=== PATIENT | male | born 1985 | race Caucasian/White ===

== ENCOUNTER 2020-12-18 17:00 | Emergency (ER) | payer MEDICAID, SELFPAY ==
[2020-12-18 17:14] VITALS: BP 146/97; PULSE 102; RESP 16; TEMP 37.1; O2SAT 98; BMI 38.7
[2020-12-18 17:20] VITALS: BP 146/97; PULSE 102; RESP 16; TEMP 37.1; O2SAT 98; BMI 38.5
--- NOTE | 2020-12-18 17:44 | HMH.EDUTC ---
[facility] [place] Impression: Abscess Disposition: Home, Self-Care Condition on Discharge: Good Instructions: Boil, DI for Skin Abscess Additional Instructions: keep area clean and dry if worsen return or be seen in ed do not take any antibiotics in cabinet antibiotics as ordered do not squeeze area follow up with pcp Prescriptions: Sulfamethoxazole/Trimethoprim [Bactrim DS tablet] 1 each PO BID 10 Days #20 tab Prescription Printed Referrals: New Mendez [Primary Care Provider] - Time of Disposition: 17:49 Medical Decision Making - Basil Inquiry Pt receiving controlled substance: No Vital Signs: 12/18/20 17:14 12/18/20 17:20 Temperature 98.7 F 98.7 F Temperature Source Oral Oral Pulse Rate [Left] 102 H 102 H Respiratory Rate 16 16 Blood Pressure [Right Arm] 146/97 H 146/97 H Blood Pressure Mean [Right Arm] 113 113 Blood Pressure Source [Right Arm] Automatic Cuff Automatic Cuff Blood Pressure Position [Right Arm] Supine Sitting 02 Sat by Pulse Oximetry 98 98 Oxygen Delivery Method Room Air Room Air Orders (Tests/Meds): ORDERS Category Date Time Status Wound Culture and Gram Stain Stat Micro 12/18/20 17:43 [place] [facility] [place] - General Chief complaint: Urgent Treatment Center Stated complaint: INSECT BITE R LEG Time Seen by Provider: 12/18/20 17:44 Mode of Arrival: Ambulatory Source of Information: Patient Limitations: No Limitations Description of Symptoms (Recalled from Triage Doc. by RN): patient states that he was bit by a spider 2 days ago, and attempted to treat at home with leftover ABX. Patient drained bite by self, and now getting chills at night. inflammation worsening HEENT Symptoms (Recalled from RN notes): No Resp Symptoms (Recalled from RN notes): No Skin Symptoms (Recalled from RN notes): Yes MS Symptoms (Recalled from RN notes): No Functional Status (Recalled from RN notes): WNL - History of Present Illness Provider Complaint: 35 yr old male patient states that he was bit by a spider 2 days ago, and attempted to treat at home with leftover ABX. Patient drained bite by self, and now getting chills at night. inflammation worsening - Related Data Previous Rx's Medication Instructions Recorded Sulfamethoxazole/Trimethoprim 1 each PO BID 10 Days #20 tab 12/18/20 [Bactrim DS tablet] Allergies Allergy/AdvReac Type Severity Reaction Status Date / Time No Known Allergies Allergy Verified 12/18/20 17:31 - Worker's Comp Is this a Worker's Comp case?: No [facility] History - Hepatitis A Screen Drug use history?: No High risk sexual behaviors?: No History of sexually transmitted infection?: No Currently employed?: No Childcare worker?: No Do you have indoor plumbing?: Yes Do you have electricity?: Yes Attestation statement:: This patient has been screened for Hepatitis A risk factors. I have reviewed the patient's past medical history: Yes - Social History Alcohol Intake: never Occupational Status: other ROS Obtained: Yes Systems reviewed as appropriate & no additional complaints - Constitutional Constitutional: Reports system reviewed and no additional complaints, except as docu, Denies fever(s) - Eyes Eyes: Reports system reviewed and no additional complaints, except as docu, Denies change in vision - ENT Ears, Nose, Mouth, and Throat: Reports system reviewed and no additional complaints, except as docu, Denies sore throat - Cardiovascular Cardiovascular: Reports system reviewed and no additional complaints, except as docu, Denies chest pain - Respiratory Respiratory: Reports system reviewed and no additional complaints, except as docu, Denies change in phlegm color - Gastrointestinal Gastrointestingal: Reports: system reviewed and no additional complaints, except as docu. Denies: nausea, vomiting - Genitourinary Male Genitourinary: Reports system reviewed and no additional complaints, except as docu - Musculoskeletal M
[2020-12-18 17:58] VITALS: BP 146/97; PULSE 102; RESP 16; TEMP 37.1; O2SAT 98
--- NOTE | 2020-12-21 12:51 | PC.NURSE ---
Lab result from culture positive for MRSA. Pt has already been given and will cover MRSA per Derik NEWELL
== END 2020-12-18 18:00 | disposition home or self-care (01) ==
PROVIDERS: Emergency Provider Nurse Practitioner Family; PCP Family Medicine
DX: L02.415 Cutaneous abscess of right lower limb (principal)
CPT/HCPCS: 87070; 87077; 87186; 87205; 99202; G0463

== ENCOUNTER 2023-10-03 13:55 | Emergency (ER) | payer MEDICAID, SELFPAY ==
[2023-10-03 14:25] VITALS: BP 138/88; PULSE 99; RESP 20; TEMP 37.6; O2SAT 97; BMI 39.2
--- NOTE | 2023-10-03 14:40 | EXP.UTC ---
Discharge Plan Disposition Patient Disposition: Home, Self-Care Condition: Good Prescriptions Prescriptions: New azithromycin [Zithromax] 250 mg tablet 250 mg PO UD DOSE PK Qty: 6 0RF Rx Instructions: Take two (2) tablets today, then one (1) tablet days #2 thru #5 benzonatate [benzonatate] 100 mg capsule 100 mg PO TIDP PRN (Reason: Cough) Qty: 30 0RF ondansetron 4 mg Tablet,Disintegrating 4 mg PO Q8H PRN (Reason: Nausea) Qty: 8 0RF No Action sulfamethoxazole-trimethoprim 1 EACH tablet 1 each PO BID 10 Days Qty: 20 0RF Referrals Follow up/Referrals: New Mendez [Primary Care Provider] - See instructions Activity Restrictions/Add. Instructions Additional Instructions/Restrictions: Drink plenty of fluids. Take tylenol or ibuprofen for pain or fever. Take the medications as directed. Follow up with your regular doctor. GO TO THE ER FOR ANY WORSENING SYMPTOMS Clinical Impressions Clinical Impression: Acute viral syndrome, Bronchitis Instructions Patient Instructions: DI for Acute Bronchitis, DI for Viral Syndrome Discharge ED Provider: Derik Martinez [facility] [place] General Stated complaint: vomiting, fever, dizziness, cant eat Time Seen by Provider: 10/03/23 14:30 History of Present Illness Provider Complaint: She states that for the past 2 days she has had vomiting, fever, chills, malaise, and sore throat. Related Data Previous Rx's Medication Instructions Recorded sulfamethoxazole 800 1 each PO BID 10 days #20 tabs 12/18/20 mg-trimethoprim 160 mg tablet azithromycin 250 mg tablet 250 mg PO UD DOSE PK #6 tabs 10/03/23 (Zithromax) benzonatate 100 mg capsule 100 mg PO TIDP PRN Cough #30 caps 10/03/23 ondansetron 4 mg disintegrating 4 mg PO Q8H PRN Nausea #8 tabs 10/03/23 tablet Allergies Allergy/AdvReac Type Severity Reaction Status Date / Time No Known Allergies Allergy Verified 12/18/20 17:31 [facility] Disclaimer: The information contained in this section may have been updated after the patient was seen, as this information can be updated by other users. Social History Smoking Status: Never smoker alcohol intake: never current occupational status: other Travel in the last 8 weeks: None ROS Obtained: Yes All systems reviewed & no additional complaints except as documented Constitutional Constitutional: Reports chills and Reports fever(s) Eyes Eyes: Denies eye discharge ENT Ears, Nose, Mouth, and Throat: Reports as per HPI Cardiovascular Cardiovascular: Denies chest pain Respiratory Respiratory: Denies chest congestion and Reports cough Gastrointestinal Gastrointestingal: Reports nausea; Denies abdominal pain, constipation, cramping, diarrhea or vomiting Musculoskeletal Musculoskeletal: Denies arthralgias Integumentary/Breasts Skin/Breast: Denies rash Neurologic Neurologic: Denies paresthesias Physical Exam General General appearance: alert and in no apparent distress Eye Eye exam: Present normal appearance, PERRL and EOMI ENT ENT exam: Present mucous membranes moist and normal external ear exam Expanded ENT Exam External ear exam: Present normal external inspection TM/Canal exam: Bilateral TM: erythema and bulging Nose exam: Absent sinus tenderness Nasal speculum exam: Bilateral: normal Mouth exam: Present normal external inspection; Absent drooling Teeth exam: Present normal inspection Throat exam: Present tonsillar erythema and tonsillomegaly Neck Neck exam: Present normal inspection, full ROM and trachea midline; Absent tenderness, lymphadenopathy or thyromegaly Chest Chest inspection: Present normal inspection and symmetric chest wall rise; Absent tenderness or rash Respiratory Respiratory exam: Present normal lung sounds bilaterally; Absent respiratory distress, wheezes, stridor or accessory muscle use Cardiovascular Cardiovascular exam: Present regular rate, normal rhythm and normal heart sounds Abdominal Exam Abdominal exam: Present soft; Absent distention, tenderness, guarding, rebound or rigidity Extremities Exam Extremities exam: Present normal inspection, full ROM and normal capillary refill; Absent tenderness or calf tenderness Back Exam Back exam: Present normal inspection and full ROM; Absent tenderness Neurological Exam Neurological exam: Present alert and oriented X3 Psychiatric Psychiatric exam: Present normal affect and normal mood Skin Skin exam: Present warm, dry, intact and normal color Lymphatic Lymphatic Findings: no adenopathy Medical Decision Making Medical Records Medical records reviewed: No I reviewed the patient's medical records. Basil Inquiry Pt receiving controlled substance: No Lab Data Lab results reviewed: Yes I reviewed the patient's lab results.
[2023-10-03 14:59] LABS: UTC Influenza A Antigen Negative (Negative); UTC Influenza B Antigen Negative (Negative)
[2023-10-03 15:07] VITALS: BP 138/88; PULSE 99; RESP 20; TEMP 37.6; O2SAT 97
[2023-10-03 15:21] LABS: Coronavirus 19, PCR Not Detected (NotDetected); Influenza B, PCR Not Detected (NotDetected)
[2023-10-03 16:16] LABS: Influenza A, PCR Detected (NotDetected)
== END 2023-10-03 15:18 | disposition home or self-care (01) ==
PROVIDERS: Emergency Provider Nurse Practitioner Family; PCP Family Medicine
DX: J10.1 Influenza due to other identified influenza virus with other respiratory manifestations (principal); R50.9 Fever, unspecified; R11.2 Nausea with vomiting, unspecified; R07.0 Pain in throat
CPT/HCPCS: 87636; 87804; 99212; 99214; G0463

== ENCOUNTER 2023-11-19 16:58 | Emergency (ER) | payer MEDICAID, SELFPAY ==
[2023-11-19] VITALS (12 sets, daily range): BP systolic 127–153; BP diastolic 90–112; PULSE 84–134; RESP 18–20; TEMP 37.1; O2SAT 97–100; BMI 39.2
--- NOTE | 2023-11-19 16:57 | ECG_ITS ---
APPROVED REPORT Exam: Resting ECG HR:94 bpm ECG Measurements Heart Rate 94 AXES VA 143 P 56 QRSd 77 QRS 63 QT 335 T 27 QTc [address] DEVIATION AND MODERATE T-WAVE ABNORMALITY, CONSIDER ANTEROLATERAL ISCHEMIA [-0.1+ mV T-WAVE IN V3-V6] ABNORMAL ECG Electronically signed by : ALANA SILVESTRE, 11/19/2023 23:09:14
--- NOTE | 2023-11-19 17:34 | XR_ITS ---
PROCEDURE INFORMATION: Exam: XR Chest Exam date and time: 11/19/2023 5:36 PM Age: 38 years old Clinical indication: Pain; Chest pressure; Additional info: Chest pain TECHNIQUE: Imaging protocol: Radiologic exam of the chest. Views: 2 views. COMPARISON: No relevant prior studies available. FINDINGS: Lungs: Clear. Pleural spaces: Normal. No pleural effusion. No pneumothorax. Heart/Mediastinum: Prominence of the right hilum could be due to by dilated pulmonary vasculature or adenopathy. Bones/joints: Unremarkable. IMPRESSION: 1. No acute pulmonary findings. 2. Prominence of the right hilum could be due to by dilated pulmonary vasculature or adenopathy. Recommend follow-up chest CT with IV contrast.
--- NOTE | 2023-11-19 17:36 | PC.NURSE ---
Dr. aVldez at bedside
--- NOTE | 2023-11-19 17:43 | ED_ITS ---
<Statement entered by John Valdez MD - 11/19/23 19:08> I was consulted by the ARTHUR, and we discussed the complexity of the problems being addressed. I approved the treatment and management plan for this patient's care in the emergency department, thus performing a substantive portion of the medical decision making. John Valdez MD Workup largely nonactionable, x-ray shows prominence of the right hilum which may be due to dilated pulmonary vasculature adenopathy. These findings were relayed to the patient at bedside and he will follow-up on an outpatient basis for this given that D-dimer has effectively ruled out pulmonary embolism today. Discharge Plan Disposition Patient Disposition: Home, Self-Care Condition: Good Prescriptions Prescriptions: New doxycycline hyclate 100 mg capsule 100 mg PO BID 10 Days Qty: 20 0RF prednisone 50 mg tablet 50 mg PO DAILY 5 Days Qty: 5 0RF No Action sulfamethoxazole-trimethoprim 1 EACH tablet 1 each PO BID 10 Days Qty: 20 0RF azithromycin [Zithromax] 250 mg tablet 250 mg PO UD DOSE PK Qty: 6 0RF Rx Instructions: Take two (2) tablets today, then one (1) tablet days #2 thru #5 benzonatate [benzonatate] 100 mg capsule 100 mg PO TIDP PRN (Reason: Cough) Qty: 30 0RF ondansetron 4 mg Tablet,Disintegrating 4 mg PO Q8H PRN (Reason: Nausea) Qty: 8 0RF Activity Restrictions/Add. Instructions Additional Instructions/Restrictions: Please follow-up closely with your PCP for reevaluation of your chest x-ray fullness that could be requiring further workup. Take medications as directed. Return to the ER as needed for any worsening signs of headache shortness of breath fever chills as needed. Please follow-up with your family doctor as discussed for possible CAT scan of your chest. Clinical Impressions Clinical Impression: Infection of lower respiratory tract, Asthma exacerbation Discharge ED Provider: John Valdez General Adult HPI <TAYLA Brooks - Last Filed: 11/19/23 19:04> General Chief complaint: Chest Pain Stated complaint: chest pain Time Seen by Provider: 11/19/23 17:21 Mode of Arrival: Wheelchair Source of Information: Patient Limitations: No Limitations Description of Symptoms (Recalled from ER Triage Doc. by RN): Patient states he started having some chest pain an hour ago. Patient also reports being dizzy and a headache. History of Present Illness HPI narrative: Patient reports he was driving his car began experiencing tunnel vision then began having chest pain and a headache. Patient reports feeling sick for the last 2 weeks with respiratory tract infection symptoms of cough fever malaise. Patient has no known cardiac history but does report that he has a history of anxiety that he self medicates with smoked marijuana. Patient also reports he has a 2-year history of intermittent upper abdominal pain that comes and goes very rapidly usually under 110. Patient currently denies shortness of breath chills hemoptysis hematochezia melena nausea vomit diarrhea. Related Data Previous Rx's Medication Instructions Recorded sulfamethoxazole 800 1 each PO BID 10 days #20 tabs 12/18/20 mg-trimethoprim 160 mg tablet azithromycin 250 mg tablet 250 mg PO UD DOSE PK #6 tabs 10/03/23 (Zithromax) benzonatate 100 mg capsule 100 mg PO TIDP PRN Cough #30 caps 10/03/23 ondansetron 4 mg disintegrating 4 mg PO Q8H PRN Nausea #8 tabs 10/03/23 tablet doxycycline hyclate 100 mg capsule 100 mg PO BID 10 days #20 caps 11/19/23 prednisone 50 mg tablet 50 mg PO DAILY 5 days #5 tabs 11/19/23 Allergies Allergy/AdvReac Type Severity Reaction Status Date / Time No Known Allergies Allergy Verified 12/18/20 17:31 [facility] <TAYLA Brooks - Last Filed: 11/19/23 19:04> [facility] Disclaimer: The information contained in this section may have been updated after the patient was seen, as this information can be updated by other users. Social History (Updated 10/05/23 @ 11:10 by Derik Martinez APRN) Smoking Status: Current every day smoker alcohol intake: never current occupational status: other Travel in the last 8 weeks: None <TAYLA Brooks - Last Filed: 11/19/23 19:04> ROS Obtained: Yes Systems reviewed as appropriate & no additional complaints except as documented Physical Exam <TAYLA Brooks - Last Filed: 11/19/23 19:04> General General appearance: alert, in no apparent distress and anxious Head Head exam: atraumatic and normal inspection Eye Eye exam: Present normal appearance and EOMI ENT ENT exam: Present normal exam, normal oropharynx and mucous membranes moist Neck Neck exam: Present normal inspection and full ROM Chest Chest inspection: Present normal inspection and symmetric chest wall rise Respiratory Respiratory exam: Present normal lung sounds bilaterally and wheezes; Absent respiratory distress, stridor or accessory muscle use Cardiovascular Cardiovascular exam: Present normal rhythm, tachycardia, normal heart sounds, +S1 and +S2 Abdominal Exam Abdominal exam: Present soft (Obese) and normal bowel sounds; Absent tenderness Extremities Exam Extremities exam: Present normal inspection and full ROM Back Exam Back exam: Present normal inspection and full ROM Neurological Exam Neurological exam: Present alert and oriented X3 Psychiatric Psychiatric exam: Present anxious and other (The patient has awake alert and interactive) Skin Skin exam: Present warm, dry and normal color Lymphatic Lymphatic Findings: no adenopathy Medical Decision Making <TAYLA Brooks - Last Filed: 11/19/23 19:04> Medical Records Medical records reviewed: Yes I reviewed the patient's medical records. Basil Inquiry Pt receiving controlled substance: No Vital Signs: 11/19/23 17:00 11/19/23 18:04 11/19/23 18:05 Temperature 98.8 F Temperature Source Oral Pulse Rate 102 H 100 H Pulse Rate [Left Radial] 103 H Respiratory Rate 20 Blood Pressure 148/95 H 149/107 H Blood Pressure [Left Arm] 144/94 H Blood Pressure Mean Blood Pressure Mean [Left Arm] 110 Blood Pressure Source [Left Arm] Automatic Cuff Blood Pressure Position [Left Arm] Sitting 02 Sat by Pulse Oximetry 99 99 98 Oxygen Delivery Method Room Air Room Air Room Air 11/19/23 18:10 11/19/23 18:15 11/19/23 18:20 Temperature Temperature Source Pulse Rate 91 H 98 H 108 H Pulse Rate [Left Radial] Respiratory Rate Blood Pressure 127/90 143/93 H 153/112 H Blood Pressure [Left Arm] Blood Pressure Mean Blood Pressure Mean [Left Arm] Blood Pressure Source [Left Arm] Blood Pressure Position [Left Arm] 02 Sat by Pulse Oximetry 98 98 98 Oxygen Delivery Method Room Air Room Air Room Air 11/19/23 18:25 11/19/23 18:30 11/19/23 18:35 Temperature Temperature Source Pulse Rate 123 H 134 H 107 H Pulse Rate [Left Radial] Respiratory Rate Blood Pressure 128/96 H 148/106 H 144/99 H Blood Pressure [Left Arm] Blood Pressure Mean 110 Blood Pressure Mean [Left Arm] Blood Pressure Source [Left Arm] Blood Pressure Position [Left Arm] 02 Sat by Pulse Oximetry 100 98 97 Oxygen Delivery Method Room Air Room Air Room Air 11/19/23 18:40 11/19/23 18:45 Temperature Temperature Source Pulse Rate 102 H 96 H Pulse Rate [Left Radial] Respiratory Rate Blood Pressure 144/97 H 149/100 H Blood Pressure [Left Arm] Blood Pressure Mean 109 116 Blood Pressure Mean [Left Arm] Blood Pressure Source [Left Arm] Blood Pressure Position [Left Arm] 02 Sat by Pulse Oximetry 98 100 Oxygen Delivery Method Room Air Room Air Lab Data Lab results reviewed: Yes I reviewed the patient's lab results. Lab Results 11/19/23 17:00: WBC 5.9, RBC 5.47, Hgb 15.7, Hct 48.0, MCV 87.7, MCH 28.7, MCHC 32.7, RDW 13.6, Plt Count 238, MPV 7.5, Neut % (Auto) 32.3 L, Lymph % (Auto) 42.1, [place] % (Auto) 11.8 H, Eos % (Auto) 13.8 H, Baso % (Auto) 4.5 H, Neut # (Auto) 1.9, Lymph # (Auto) 2.5, Lagrange # (Auto) 0.7, Eos # (Auto) 0.8 H, Baso # (Auto) 0.3 H, D-Dimer 0.38, Sodium 141, Potassium 3.7, Chloride 102, Carbon Dioxide 32 H, Anion Gap 10.7, BUN 11, Creatinine 1.00, Estimated Creat Clear 159, Estimated GFR 85, Est GFR ( Amer) 102, Glucose 81, Calcium 9.8, Total Bilirubin 0.6, AST 92 H, ALT 94 H, Alkaline Phosphatase 74, Troponin I < 0.01, Total Protein 8.0, Albumin 4.5, Globulin 3.5 H, Albumin/Globulin Ratio 1.3 11/19/23 18:06: Lactate 1.0 11/19/23 17:00 11/19/23 17:00 Orders (Tests/Meds): ED MEDICATIONS Discontinued Medications Generic Name Dose Route Start Last Admin Trade Name Freq PRN Reason Stop Dose Admin Acetaminophen 1,000 mg 11/19/23 17:57 11/19/23 18:16 Acetaminophen 1,000mg/100ml Vial IV 11/19/23 17:58 1,000 mg ONCE ONE Administration Albuterol/Ipratropium 3 ml 11/19/23 17:57 11/19/23 18:15 Ipratropium/Albuterol 3 Ml Neb IH 11/19/23 17:58 3 ml ONCE ONE Administration Dexamethasone Sodium Phosphate 10 mg 11/19/23 17:57 11/19/23 18:16 Dexamethasone 4mg/Ml 1ml Vial IM 11/19/23 17:58 10 mg ONCE ONE Administration Diphenhydramine HCl 50 mg 11/19/23 18:03 11/19/23 18:16 Diphenhydramine 50mg/Ml Vial IV 11/19/23 18:04 50 mg ONCE ONE Administration Ketorolac Tromethamine 15 mg 11/19/23 17:57 11/19/23 18:16 Ketorolac 30mg/Ml Vial IV 11/19/23 17:58 15 mg ONCE ONE Administration Prochlorperazine Edisylate 10 mg 11/19/23 18:03 11/19/23 18:16 Prochlorperazine 10mg/2ml Vial IV 11/19/23 18:04 10 mg ONCE ONE Administration ORDERS Category Date Time Status CXR 2 view (NOT portable) [XR chest 2V] Stat Exams 11/19/23 17:34 Completed Complete Blood Count Auto Diff Stat Lab 11/19/23 17:00 Completed Comprehensive Metabolic Panel Stat Lab 11/19/23 17:00 Completed D-Dimer Stat Lab 11/19/23 17:00 Completed Lactic Acid Stat Lab 11/19/23 18:06 Completed Rapid PCR Covid and Flu A/B Stat Lab 11/19/23 18:06 Received Troponin I Q3H Lab 11/19/23 20:45 Ordered Troponin I Q3H Lab 11/19/23 23:45 Ordered Troponin I Stat Lab 11/19/23 17:00 Completed HEART Score History (anamnesis): Slightly suspicious ECG: Normal Age: <45 years Risk factors: 1-2 risk factors Troponin: </= normal limit HEART Score: 1 Medical Decision Narrative: In summary patient is a 38-year-old male who presents to the emergency department for evaluation of chest pain and shortness of breath. Patient is normotensive slightly tachycardic of a heart rate of 103 satting at 99% on room air respiratory rate of 20 and afebrile upon arrival. Physical exam is remarkable for end expiratory wheezes in all 4 rogers but breath sounds are heard to bases. Patient has a grossly obese abdomen that has no tenderness to palpation currently. Bowel sounds are normal active. He has no evidence of a surgical abdomen. EKG on the bedside monitor shows a rate of 100 with normal sinus rhythm. Patient does report having severe anxiety and self medicates with marijuana frequently. Patient denies any desire to take a hot bath and has no nausea vomiting diarrhea associated with the abdominal pain that he briefly feels. Differential diagnosis includes PE versus ACS versus an acute abdomen versus COPD versus asthma versus lower respiratory tract infection etc. Initial workup will be conducted with hematologic labs respiratory swabs plain film chest x-ray twelve-lead EKG.. Initial interventions include Toradol Tylenol breathing treatment Decadron. initial workup reviewed by me shows that his hematologic labs are nonactionable. Plain film chest x-ray shows no acute processes via my informal review.. Upon repeat evaluation patient reports complete resolution of his subjective pain in both his head and his chest. Patient heart rate has remained 100. Given this patient is appropriate for discharge with close follow-up with his PCP. <John Valdez MD - Last Filed: 11/19/23 19:05> Vital Signs: 11/19/23 17:00 11/19/23 18:04 11/19/23 18:05 Temperature 98.8 F Temperature Source Oral Pulse Rate 102 H 100 H Pulse Rate [Left Radial] 103 H Respiratory Rate 20 Blood Pressure 148/95 H 149/107 H Blood Pressure [Left Arm] 144/94 H Blood Pressure Mean Blood Pressure Mean [Left Arm] 110 Blood Pressure Source [Left Arm] Automatic Cuff Blood Pressure Position [Left Arm] Sitting 02 Sat by Pulse Oximetry 99 99 98 Oxygen Delivery Method Room Air Room Air Room Air 11/19/23 18:10 11/19/23 18:15 11/19/23 18:20 Temperature Temperature Source Pulse Rate 91 H 98 H 108 H Pulse Rate [Left Radial] Respiratory Rate Blood Pressure 127/90 143/93 H 153/112 H Blood Pressure [Left Arm] Blood Pressure Mean Blood Pressure Mean [Left Arm] Blood Pressure Source [Left Arm] Blood Pressure Position [Left Arm] 02 Sat by Pulse Oximetry 98 98 98 Oxygen Delivery Method Room Air Room Air Room Air 11/19/23 18:25 11/19/23 18:30 11/19/23 18:35 Temperature Temperature Source Pulse Rate 123 H 134 H 107 H Pulse Rate [Left Radial] Respiratory Rate Blood Pressure 128/96 H 148/106 H 144/99 H Blood Pressure [Left Arm] Blood Pressure Mean 110 Blood Pressure Mean [Left Arm] Blood Pressure Source [Left Arm] Blood Pressure Position [Left Arm] 02 Sat by Pulse Oximetry 100 98 97 Oxygen Delivery Method Room Air Room Air Room Air 11/19/23 18:40 11/19/23 18:45 Temperature Temperature Source Pulse Rate 102 H 96 H Pulse Rate [Left Radial] Respiratory Rate Blood Pressure 144/97 H 149/100 H Blood Pressure [Left Arm] Blood Pressure Mean 109 116 Blood Pressure Mean [Left Arm] Blood Pressure Source [Left Arm] Blood Pressure Position [Left Arm] 02 Sat by Pulse Oximetry 98 100 Oxygen Delivery Method Room Air Room Air Lab Data Lab Results 11/19/23 17:00: WBC 5.9, RBC 5.47, Hgb 15.7, Hct 48.0, MCV 87.7, MCH 28.7, MCHC 32.7, RDW 13.6, Plt Count 238, MPV 7.5, Neut % (Auto) 32.3 L, Lymph % (Auto) 42.1, Lagrange % (Auto) 11.8 H, Eos % (Auto) 13.8 H, Baso % (Auto) 4.5 H, Neut # (Auto) 1.9, Lymph # (Auto) 2.5, [place] # (Auto) 0.7, Eos # (Auto) 0.8 H, Baso # (Auto) 0.3 H, D-Dimer 0.38, Sodium 141, Potassium 3.7, Chloride 102, Carbon Dioxide 32 H, Anion Gap 10.7, BUN 11, Creatinine 1.00, Estimated Creat Clear 159, Estimated GFR 85, Est GFR ( Amer) 102, Glucose 81, Calcium 9.8, Total Bilirubin 0.6, AST 92 H, ALT 94 H, Alkaline Phosphatase 74, Troponin I < 0.01, Total Protein 8.0, Albumin 4.5, Globulin 3.5 H, Albumin/Globulin Ratio 1.3 11/19/23 18:06: Lactate 1.0 Orders (Tests/Meds): ED MEDICATIONS Discontinued Medications Generic Name Dose Route Start Last Admin Trade Name Britany PRN Reason Stop Dose Admin Acetaminophen 1,000 mg 11/19/23 17:57 11/19/23 18:16 Acetaminophen 1,000mg/100ml Vial IV 11/19/23 17:58 1,000 mg ONCE ONE Administration Albuterol/Ipratropium 3 ml 11/19/23 17:57 11/19/23 18:15 Ipratropium/Albuterol 3 Ml Neb IH 11/19/23 17:58 3 ml ONCE ONE Administration Dexamethasone Sodium Phosphate 10 mg 11/19/23 17:57 11/19/23 18:16 Dexamethasone 4mg/Ml 1ml Vial IM 11/19/23 17:58 10 mg ONCE ONE Administration Diphenhydramine HCl 50 mg 11/19/23 18:03 11/19/23 18:16 Diphenhydramine 50mg/Ml Vial IV 11/19/23 18:04 50 mg ONCE ONE Administration Ketorolac Tromethamine 15 mg 11/19/23 17:57 11/19/23 18:16 Ketorolac 30mg/Ml Vial IV 11/19/23 17:58 15 mg ONCE ONE Administration Prochlorperazine Edisylate 10 mg 11/19/23 18:03 11/19/23 18:16 Prochlorperazine 10mg/2ml Vial IV 11/19/23 18:04 10 mg ONCE ONE Administration ORDERS Category Date Time Status CXR 2 view (NOT portable) [XR chest 2V] Stat Exams 11/19/23 17:34 Completed Complete Blood Count Auto Diff Stat Lab 11/19/23 17:00 Completed Comprehensive Metabolic Panel Stat Lab 11/19/23 17:00 Completed D-Dimer Stat Lab 11/19/23 17:00 Completed Lactic Acid Stat Lab 11/19/23 18:06 Completed Rapid PCR Covid and Flu A/B Stat Lab 11/19/23 18:06 Received Troponin I Q3H Lab 11/19/23 20:45 Ordered Troponin I Q3H Lab 11/19/23 23:45 Ordered Troponin I Stat Lab 11/19/23 17:00 Completed ECG Data Tracing #1: Independently interpreted by me, rate is 94, rhythm is regular, axis is normal, no ST elevation in anatomical contiguous leads, QTc 387. HEART Score HEART Score: 1 Critical Care <TAYLA Brooks - Last Filed: 11/19/23 19:04> Critical Care Time Critical Care Time: No
[2023-11-19 17:50] LABS: Basophils # 0.3 K/mm3 (0-0.2); Basophils % 4.5 % (0.1-2.0); Chloride 102 mmol/L (98-107); Eosinophils # 0.8 K/mm3 (0.0-0.4); Eosinophils % 13.8 % (0.1-12.0); Hemoglobin 15.7 g/dL (14.1-18.0); Lymphocytes # 2.5 K/mm3 (0.7-4.5); Lymphocytes % 42.1 % (10-50); Mean Corpuscular HGB Conc 32.7 g/dL (31.8-35.4); Mean Corpuscular Hemoglobin 28.7 pg (27.0-31.2); Mean Corpuscular Volume 87.7 fl (80-94); Mean Platelet Volume 7.5 fl (7.4-10.4); Monocytes # 0.7 K/mm3 (0.1-1.0); Monocytes % 11.8 % (1.7-9.3); Neutrophils # 1.9 K/mm3 (1.8-7.8); Neutrophils % 32.3 % (37.0-80.0); Platelet Count 238 K/mm3 (142-424); Potassium 3.7 mmoL/L (3.5-5.1); Red Blood Count 5.47 M/mm3 (4.60-6.20); Red Cell Distribution Width 13.6 % (11.5-17.5); Sodium 141 mmol/L (136-145); White Blood Count 5.9 K/mm3 (4.8-10.8)
[2023-11-19 17:52] LABS: Alanine Aminotransferase 94 U/L (12-78); Aspartate Amino Transferase 92 U/L (17-59); Blood Urea Nitrogen 11 mg/dl (9-20); Creatinine Clearance Estimated 159 mL/min (50-200); Estimated Glomerular Filt Rate 85 ml/min (>60); GFR (African American) 102 ML/MIN (>60)
[2023-11-19 17:53] LABS: Albumin Level 4.5 g/dl (3.5-5.0); Albumin/Globulin Ratio 1.3 (1.1-1.8); Alkaline Phosphatase 74 U/L (38-126); Anion Gap 10.7 mEq/L (5-15); Bilirubin,Total 0.6 mg/dl (0.2-1.3); Calcium 9.8 mg/dl (8.4-10.2); Carbon Dioxide 32 mmol/L (22.0-30.0); Globulin 3.5 g/dL (1.3-3.2); Glucose 81 mg/dl (74-100)
[2023-11-19 18:12] LABS: Troponin I < 0.01 ng/ml (0.00-0.034)
[2023-11-19] MEDS: IPRATROPIUM/ALBUTEROL 3 ML NEB IH (18:15)
[2023-11-19] MEDS: PROCHLORPERAZINE 10MG/2ML VIAL 10 MG IV (18:16)
[2023-11-19] MEDS: KETOROLAC 30MG/ML VIAL 15 MG IV (18:16)
[2023-11-19] MEDS: diphenhydrAMINE 50MG/ML VIAL 50 MG IV (18:16)
[2023-11-19] MEDS: DEXAMETHASONE 4MG/ML 1ML VIAL 10 MG IM (18:16)
[2023-11-19] MEDS: ACETAMINOPHEN 1,000MG/100ML VIAL 1000 MG IV (18:16)
[2023-11-19 18:17] LABS: Coronavirus 19, PCR Not Detected (NotDetected); Influenza A, PCR Not Detected (NotDetected); Influenza B, PCR Not Detected (NotDetected)
[2023-11-19 18:25] LABS: D-Dimer 0.38 ug/mL (0.0-0.5)
== END 2023-11-19 19:15 | disposition home or self-care (01) ==
PROVIDERS: Physician Assistant; Emergency Provider Emergency Medicine; PCP Family Medicine
DX: R07.9 Chest pain, unspecified (principal); J45.901 Unspecified asthma with (acute) exacerbation; R51.9 Headache, unspecified; R05.9 Cough, unspecified; R50.9 Fever, unspecified; J06.9 Acute upper respiratory infection, unspecified; F17.210 Nicotine dependence, cigarettes, uncomplicated
CPT/HCPCS: 71046; 80053; 83605; 84484; 85025; 85378; 87636; 93005; 96372; 96374; 96375; 99285; J0131

== ENCOUNTER 2023-12-06 08:54 | Emergency (ER) | payer MEDICAID, SELFPAY ==
[2023-12-06 08:56] VITALS: BP 143/88; PULSE 108; RESP 13; TEMP 37.1; O2SAT 96; BMI 40.5
[2023-12-06 09:00] VITALS: BP 143/88; PULSE 105; O2SAT 97
--- NOTE | 2023-12-06 09:10 | CT_ITS ---
PROCEDURE INFORMATION: Exam: CT Abdomen And Pelvis With Contrast Exam date and time: 12/06/2023 9:35 AM Age: 38 years old Clinical indication: Abdominal pain; Generalized; Prior surgery; Surgery date: 6+ months; Surgery type: Cholecystectomy; Additional info: Diffuse abd pain, diarrhea TECHNIQUE: Imaging protocol: Computed tomography of the abdomen and pelvis with contrast. Radiation optimization: All CT scans at this facility use at least one of these dose optimization techniques: automated exposure control; mA and/or kV adjustment per patient size (includes targeted exams where dose is matched to clinical indication); or iterative reconstruction. Contrast material: ISOVUE; Contrast volume: 75 ml; Contrast route: IV; COMPARISON: CR XR CHEST 2V 11/19/2023 5:36 PM FINDINGS: Lungs: There is a calcified 4 mm granuloma in the right lower lobe peripherally on image 13.The visualized portions of the lung bases are otherwise normal. Diaphragm: A small hiatal hernia is present. Liver: There are no focal liver lesions present, no mass is identified. Gallbladder and bile ducts: There has been a cholecystectomy. Pancreas: The pancreas is normal. Spleen: The spleen is normal. Adrenal glands: The adrenal glands are normal. Kidneys and ureters: The kidneys are normal. There is no evidence of hydronephrosis. No calculi are identified. Stomach and bowel: There is mild increase in right colonic fluid with no evidence of colitis. Appendix: A normal appendix is identified. Intraperitoneal space: Unremarkable. No free air. No significant fluid collection. Vasculature: Unremarkable. No abdominal aortic aneurysm. Lymph nodes: Unremarkable. No enlarged lymph nodes. Urinary bladder: Unremarkable as visualized. Reproductive: Unremarkable as visualized. Bones/joints: Unremarkable. No acute fracture. Soft tissues: There is a fat filled right inguinal hernia. Other findings: There are right hilar calcifications presumably reflecting chronic granulomatous disease. IMPRESSION: 1. There are right hilar calcifications presumably reflecting chronic granulomatous disease. 2. There is mild increase in right colonic fluid with no evidence of colitis.
--- NOTE | 2023-12-06 09:12 | ED_ITS ---
Discharge Plan Disposition Patient Disposition: Home, Self-Care Prescriptions Prescriptions: New loperamide 2 mg capsule 2 mg PO Q6H PRN (Reason: loose stool) 5 Days Qty: 20 0RF Rx Instructions: Please take 4 mg initially, followed by 2 mg after each loose stool, maximum 16 mg/day ondansetron 4 mg tablet,disintegrating 4 mg PO Q6H PRN (Reason: nausea and vomiting) 5 Days Qty: 20 0RF No Action sulfamethoxazole-trimethoprim 1 EACH tablet 1 each PO BID 10 Days Qty: 20 0RF azithromycin [Zithromax] 250 mg tablet 250 mg PO UD DOSE PK Qty: 6 0RF Rx Instructions: Take two (2) tablets today, then one (1) tablet days #2 thru #5 benzonatate [benzonatate] 100 mg capsule 100 mg PO TIDP PRN (Reason: Cough) Qty: 30 0RF ondansetron 4 mg Tablet,Disintegrating 4 mg PO Q8H PRN (Reason: Nausea) Qty: 8 0RF doxycycline hyclate 100 mg capsule 100 mg PO BID 10 Days Qty: 20 0RF prednisone 50 mg tablet 50 mg PO DAILY 5 Days Qty: 5 0RF Referrals Follow up/Referrals: Bret Dueñas MD [Physician] - See instructions Provider,MD Ashlyn [Referring] - See instructions Activity Restrictions/Add. Instructions Additional Instructions/Restrictions: No emergent medical condition was identified today your symptoms are most likely secondary to viral gastroenteritis. Given the fact that you did disclose that you had some chronic diarrhea I recommend you follow-up with our GI provider a referral has been made. Return with any significant worsening symptoms or other concerns. Clinical Impressions Clinical Impression: Nausea vomiting and diarrhea Instructions Patient Instructions: DI for Acute Abdominal Pain Discharge ED Provider: Owen Jolley General Adult HPI General Chief complaint: Abdominal Pain Stated complaint: diarrhea, vomiting, weakness Time Seen by Provider: 12/06/23 09:05 Mode of Arrival: Ambulatory Source of Information: Patient and Parent(s) Limitations: No Limitations Description of Symptoms (Recalled from ER Triage Doc. by RN): pt presents to ED with c/o diarrhea, nausea, vomitting, generalized abdominal cramping. symptoms ongoing for 3 days History of Present Illness HPI narrative: Patient is a 38-year-old male presents today with nausea vomiting and diarrhea. Also has generalized abdominal cramping that he states is severe. Denies any blood in the stool but was recently on antibiotics was treated last week for presumed asthma versus COPD exacerbation advised to stop smoking which he has done. Recently completed his antibiotics. Denies any fevers denies any history of inflammatory bowel disease. Abdominal pain is described as diffuse and crampy in nature. No traveling outside the country. Also has had some nausea vomiting associated with this his son recently had strep but this was diagnosed with an objective test and was not a viral etiology. No other sick contacts that he is aware of. Related Data Previous Rx's Medication Instructions Recorded sulfamethoxazole 800 1 each PO BID 10 days #20 tabs 12/18/20 mg-trimethoprim 160 mg tablet azithromycin 250 mg tablet 250 mg PO UD DOSE PK #6 tabs 10/03/23 (Zithromax) benzonatate 100 mg capsule 100 mg PO TIDP PRN Cough #30 caps 10/03/23 ondansetron 4 mg disintegrating 4 mg PO Q8H PRN Nausea #8 tabs 10/03/23 tablet doxycycline hyclate 100 mg capsule 100 mg PO BID 10 days #20 caps 11/19/23 prednisone 50 mg tablet 50 mg PO DAILY 5 days #5 tabs 11/19/23 loperamide 2 mg capsule 2 mg PO Q6H PRN loose stool 5 days 12/06/23 #20 caps ondansetron 4 mg disintegrating 4 mg PO Q6H PRN nausea and 12/06/23 tablet vomiting 5 days #20 tabs Allergies Allergy/AdvReac Type Severity Reaction Status Date / Time No Known Allergies Allergy Verified 12/18/20 17:31 [facility] Disclaimer: The information contained in this section may have been updated after the patient was seen, as this information can be updated by other users. Social History (Updated 10/05/23 @ 11:10 by Derik Martinez APRN) Smoking Status: Former smoker alcohol intake: never current occupational status: other Travel in the last 8 weeks: None ROS Obtained: Yes All systems reviewed & no additional complaints except as documented Physical Exam General General appearance: alert and in no apparent distress Respiratory Respiratory exam: Present normal lung sounds bilaterally Cardiovascular Cardiovascular exam: Present regular rate Abdominal Exam Abdominal exam: Present soft and tenderness (Diffuse tenderness no rebound or guarding) Neurological Exam Neurological exam: Present alert and oriented X3 Medical Decision Making Basil Inquiry Pt receiving controlled substance: No Vital Signs: 12/06/23 08:56 12/06/23 09:00 12/06/23 09:22 Temperature 98.7 F Temperature Source Oral Pulse Rate 105 H 105 H Pulse Rate [Left Radial] 108 H Respiratory Rate 13 Blood Pressure 143/88 H 113/88 Blood Pressure [Right Arm] 143/88 H Blood Pressure Mean [Right Arm] 106 02 Sat by Pulse Oximetry 96 97 95 Oxygen Delivery Method Room Air 12/06/23 10:00 Temperature Temperature Source Pulse Rate 98 H Pulse Rate [Left Radial] Respiratory Rate Blood Pressure 108/70 L Blood Pressure [Right Arm] Blood Pressure Mean [Right Arm] 02 Sat by Pulse Oximetry 95 Oxygen Delivery Method Room Air Lab Data Lab results reviewed: Yes I reviewed the patient's lab results. Lab Results 12/06/23 09:05: WBC 8.3, RBC 5.58, Hgb 15.8, Hct 48.4, MCV 86.7, MCH 28.3, MCHC 32.7, RDW 13.9, Plt Count 235, MPV 7.3 L, Neut % (Auto) 71.8, Lymph % (Auto) 11.9, [place] % (Auto) 10.1 H, Eos % (Auto) 3.3, Baso % (Auto) 2.9 H, Neut # (Auto) 5.9, Lymph # (Auto) 1.0, [place] # (Auto) 0.8, Eos # (Auto) 0.3, Baso # (Auto) 0.2, Sodium 138, Potassium 3.7, Chloride 104, Carbon Dioxide 28, Anion Gap 9.7, BUN 10, Creatinine 1.10, Estimated Creat Clear 150, Estimated GFR 76, Est GFR ( Amer) 92, Glucose 119 H, Calcium 9.6, Phosphorus 3.1, Magnesium 1.9, Total Bilirubin 0.9, AST 37, ALT 49, Alkaline Phosphatase 75, Total Protein 7.8, Albumin 4.5, Globulin 3.3 H, Albumin/Globulin Ratio 1.4, Lipase 36 12/06/23 09:05 12/06/23 09:05 Orders (Tests/Meds): ED MEDICATIONS Generic Name Dose Route Start Last Admin Trade Name Freq PRN Reason Stop Dose Admin Sodium Chloride 10 ml 12/06/23 09:41 12/06/23 09:42 Sodium Chloride 0.9% 10ml Syr (Rad Only) IV 01/05/24 09:40 10 ml NEEDED PRN Administration Maintain IV Site Discontinued Medications Generic Name Dose Route Start Last Admin Trade Name Britany PRN Reason Stop Dose Admin Lactated Ringer's 1,000 mls @ 999 mls/hr 12/06/23 09:15 12/06/23 09:23 Lactated Ringer's 1000 Ml Bag IV 12/06/23 10:15 999 mls/hr .Q1H1M WHITNEY Administration Iopamidol 75 ml 12/06/23 09:41 12/06/23 09:42 Iopamidol-370 (76%);100ml Bottle IV 12/06/23 09:42 75 ml ONCE ONE Administration Ketorolac Tromethamine 15 mg 12/06/23 09:10 12/06/23 09:24 Ketorolac 30mg/Ml Vial IV 12/06/23 09:11 15 mg ONCE ONE Administration Ondansetron HCl 4 mg 12/06/23 09:10 12/06/23 09:24 Ondansetron 4mg/2ml Vial IV 12/06/23 09:11 4 mg ONCE ONE Administration ORDERS Category Date Time Status CT abdomen pelvis w con Stat Cat Scan 12/06/23 09:10 Completed CBC w/Auto Diff [Complete Blood Count Auto Diff] Stat Lab 12/06/23 09:05 Completed CMP [Comprehensive Metabolic Panel] Stat Lab 12/06/23 09:05 Completed Diarrhea 23 Panel, PCR Stat Lab 12/06/23 09:10 Ordered Lipase Stat Lab 12/06/23 09:05 Completed Magnesium Stat Lab 12/06/23 09:05 Completed Phosphorous Stat Lab 12/06/23 09:05 Completed Medical Decision Narrative: Patient is a well-appearing 38-year-old male presents today with diffuse abdominal pain and tenderness with nausea vomiting diarrhea. He recently completed antibiotics on the differential would include invasive bacterial pathogens and colitis such as C. difficile colitis versus inflammatory colitis versus ischemic which is less likely. Additionally could be gastroenteritis and viral in nature. IV fluids pain medicine nausea medicine labs including comprehensive PCR panel will be performed as well as a CT scan for further evaluation and management. Reassessment 1052 patient feeling much better tolerating p.o. serial abdominal exams are benign labs unremarkable CT scan was performed which I personally interpreted shows no acute intra-abdominal process radiology read is consistent with this specifically no evidence of any colitis. On further questioning and discussion with the patient he states that he had chronic diarrhea I given him a referral to gastroenterology. Zofran and loperamide have been prescribed he was discharged in stable condition with return precautions emphasized Critical Care Critical Care Time Critical Care Time: No
[2023-12-06 09:21] LABS: Basophils # 0.2 K/mm3 (0-0.2); Basophils % 2.9 % (0.1-2.0); Chloride 104 mmol/L (98-107); Eosinophils # 0.3 K/mm3 (0.0-0.4); Eosinophils % 3.3 % (0.1-12.0); Hematocrit 48.4 % (42.0-52.0); Hemoglobin 15.8 g/dL (14.1-18.0); Lymphocytes % 11.9 % (10-50); Mean Corpuscular HGB Conc 32.7 g/dL (31.8-35.4); Mean Corpuscular Hemoglobin 28.3 pg (27.0-31.2); Mean Corpuscular Volume 86.7 fl (80-94); Mean Platelet Volume 7.3 fl (7.4-10.4); Monocytes # 0.8 K/mm3 (0.1-1.0); Monocytes % 10.1 % (1.7-9.3); Neutrophils # 5.9 K/mm3 (1.8-7.8); Neutrophils % 71.8 % (37.0-80.0); Platelet Count 235 K/mm3 (142-424); Potassium 3.7 mmoL/L (3.5-5.1); Red Blood Count 5.58 M/mm3 (4.60-6.20); Red Cell Distribution Width 13.9 % (11.5-17.5); Sodium 138 mmol/L (136-145); White Blood Count 8.3 K/mm3 (4.8-10.8)
[2023-12-06 09:22] VITALS: BP 113/88; PULSE 105; O2SAT 95
[2023-12-06 09:23] LABS: Alanine Aminotransferase 49 U/L (12-78); Aspartate Amino Transferase 37 U/L (17-59); Blood Urea Nitrogen 10 mg/dl (9-20); Creatinine Clearance Estimated 150 mL/min (50-200); Estimated Glomerular Filt Rate 76 ml/min (>60); GFR (African American) 92 ML/MIN (>60)
[2023-12-06] MEDS: LACTATED RINGERS 1000ML 1,000 ML 999 ML IV (09:23)
[2023-12-06 09:24] LABS: Albumin Level 4.5 g/dl (3.5-5.0); Albumin/Globulin Ratio 1.4 (1.1-1.8); Alkaline Phosphatase 75 U/L (38-126); Anion Gap 9.7 mEq/L (5-15); Bilirubin,Total 0.9 mg/dl (0.2-1.3); Calcium 9.6 mg/dl (8.4-10.2); Carbon Dioxide 28 mmol/L (22.0-30.0); Globulin 3.3 g/dL (1.3-3.2); Glucose 119 mg/dl (74-100); Lipase 36 U/L (23-300); Magnesium 1.9 mg/dl (1.6-2.3); Phosphorous 3.1 mg/dl (2.5-4.5); Total Protein,Serum 7.8 g/dl (6.3-8.2)
[2023-12-06] MEDS: KETOROLAC 30MG/ML VIAL 15 MG IV (09:24)
[2023-12-06] MEDS: ONDANSETRON 4MG/2ML VIAL 4 MG IV (09:24)
--- NOTE | 2023-12-06 09:30 | PC.NURSE ---
pt to CT via wheelchair
[2023-12-06] MEDS: IOPAMIDOL-370 (76%);100ML BOTTLE 75 ML IV (09:42)
[2023-12-06] MEDS: SODIUM CHLORIDE 0.9% 10ML SYR (RAD ONLY) 10 ML IV (09:42)
[2023-12-06 10:00] VITALS: BP 108/70; PULSE 98; O2SAT 95
--- NOTE | 2023-12-06 10:47 | PC.NURSE ---
Rounded on patient, patient given water at this time.
[2023-12-06 10:55] VITALS: BP 125/83; PULSE 81; RESP 16; TEMP 36.7; O2SAT 100
== END 2023-12-06 10:56 | disposition home or self-care (01) ==
PROVIDERS: Emergency Provider Student in an Organized Health Care Education/Training Program; PCP Family Medicine
DX: R10.84 Generalized abdominal pain (principal); R11.2 Nausea with vomiting, unspecified; R19.7 Diarrhea, unspecified
CPT/HCPCS: 74177; 80053; 83690; 83735; 84100; 85025; 96361; 96374; 96375; 99284; J2405; Q9967

== ENCOUNTER 2023-12-19 10:10 | Emergency (ER) | payer MEDICAID, SELFPAY ==
[2023-12-19 10:11] VITALS: BP 135/89; PULSE 86; RESP 16; TEMP 36.4; O2SAT 99; BMI 40.3
--- NOTE | 2023-12-19 10:11 | ECG_ITS ---
APPROVED REPORT Exam: Resting ECG HR:80 bpm ECG Measurements Heart Rate 80 AXES CO 149 P 49 QRSd 86 QRS 52 QT 366 T 42 QTc 402 Conclusion SINUS RHYTHM WITH OCCASIONAL ECTOPIC PREMATURE COMPLEXES NONSPECIFIC T-WAVE ABNORMALITY BORDERLINE ECG UNCONFIRMED REPORT Electronically signed by : Derik Jolley, 12/19/2023 15:04:16
--- NOTE | 2023-12-19 10:19 | XR_ITS ---
FINAL REPORT CLINICAL HISTORY: chest pain-left COMPARISON: None FINDINGS: A single portable view of the chest was obtained. The heart size and pulmonary vascularity are within normal limits. The mediastinum is within normal limits. No acute pulmonary abnormality is identified. The bony thorax is intact. IMPRESSION: No active cardiopulmonary disease. Reviewed, Interpreted and Dictated by Ahmet Kendall III, MD Transcribed by Julianne Rooney Authenticated and [facility]
[2023-12-19 10:24] LABS: MANUAL DIFFERENTIAL MANUAL DIFFERENTIAL (MANUAL DIFF)
--- NOTE | 2023-12-19 10:26 | PC.NURSE ---
in room talking with patient at this time.
[2023-12-19 10:29] LABS: Basophils # 0.1 K/mm3 (0-0.2); Basophils % 1.4 % (0.1-2.0); Chloride 105 mmol/L (98-107); Eosinophils # 0.4 K/mm3 (0.0-0.4); Eosinophils % 5.2 % (0.1-12.0); Hematocrit 43.7 % (42.0-52.0); Hemoglobin 14.1 g/dL (14.1-18.0); Lymphocytes # 2.9 K/mm3 (0.7-4.5); Lymphocytes % 41.9 % (10-50); Mean Corpuscular HGB Conc 32.2 g/dL (31.8-35.4); Mean Corpuscular Hemoglobin 28.3 pg (27.0-31.2); Mean Corpuscular Volume 87.8 fl (80-94); Mean Platelet Volume 7.2 fl (7.4-10.4); Monocytes # 0.5 K/mm3 (0.1-1.0); Monocytes % 7.2 % (1.7-9.3); Neutrophils % 44.4 % (37.0-80.0); Platelet Count 272 K/mm3 (142-424); Potassium 4.3 mmoL/L (3.5-5.1); Red Blood Count 4.97 M/mm3 (4.60-6.20); Red Cell Distribution Width 14.2 % (11.5-17.5); Sodium 139 mmol/L (136-145); White Blood Count 6.8 K/mm3 (4.8-10.8)
[2023-12-19 10:30] VITALS: BP 137/97; PULSE 83; RESP 14; O2SAT 100
[2023-12-19 10:31] LABS: Alanine Aminotransferase 35 U/L (12-78); Alkaline Phosphatase 65 U/L (38-126); Aspartate Amino Transferase 32 U/L (17-59); Bilirubin,Total 0.5 mg/dl (0.2-1.3); Blood Urea Nitrogen 13 mg/dl (9-20); Creatinine Clearance Estimated 205 mL/min (50-200); Estimated Glomerular Filt Rate 109 ml/min (>60); GFR (African American) 132 ML/MIN (>60)
[2023-12-19 10:32] LABS: Albumin Level 4.1 g/dl (3.5-5.0); Albumin/Globulin Ratio 1.2 (1.1-1.8); Anion Gap 10.3 mEq/L (5-15); Calcium 9.3 mg/dl (8.4-10.2); Carbon Dioxide 28 mmol/L (22.0-30.0); Globulin 3.3 g/dL (1.3-3.2); Glucose 104 mg/dl (74-100); Total Protein,Serum 7.4 g/dl (6.3-8.2)
[2023-12-19 10:46] LABS: Troponin I < 0.01 ng/ml (0.00-0.034)
--- NOTE | 2023-12-19 10:51 | [facility].EDCP ---
Discharge Plan Disposition Patient Disposition: Home, Self-Care Prescriptions Prescriptions: No Action sulfamethoxazole-trimethoprim 1 EACH tablet 1 each PO BID 10 Days Qty: 20 0RF azithromycin [Zithromax] 250 mg tablet 250 mg PO UD DOSE PK Qty: 6 0RF Rx Instructions: Take two (2) tablets today, then one (1) tablet days #2 thru #5 benzonatate [benzonatate] 100 mg capsule 100 mg PO TIDP PRN (Reason: Cough) Qty: 30 0RF ondansetron 4 mg Tablet,Disintegrating 4 mg PO Q8H PRN (Reason: Nausea) Qty: 8 0RF doxycycline hyclate 100 mg capsule 100 mg PO BID 10 Days Qty: 20 0RF prednisone 50 mg tablet 50 mg PO DAILY 5 Days Qty: 5 0RF loperamide 2 mg capsule 2 mg PO Q6H PRN (Reason: loose stool) 5 Days Qty: 20 0RF Rx Instructions: Please take 4 mg initially, followed by 2 mg after each loose stool, maximum 16 mg/day ondansetron 4 mg tablet,disintegrating 4 mg PO Q6H PRN (Reason: nausea and vomiting) 5 Days Qty: 20 0RF Referrals Follow up/Referrals: Artur Tam MD [Staff Physician] - See instructions Provider,MD Ashlyn [Primary Care Provider] - See instructions Viktor Avila MD [Staff Physician] - See instructions Activity Restrictions/Add. Instructions Additional Instructions/Restrictions: Your symptoms or not consistent with acute cardiopulmonary emergency. That could be secondary to reflux given your improvement with a GI cocktail. I have given you a referral to Dr. Miranda if you are to follow-up and get an outpatient endoscopy as discussed. Secondarily your symptoms could be from chronic lung inflammation from smoking marijuana as discussed. If you have any continued this we do recommend that you administer this via a different route particular orally. However as discussed this cannot be done in a safe fashion as these medications are not FDA controlled and [facility]. I did recommend that you also take [id number] Pepcid you may also try magnesium supplementation as needed for your anxiety. Please return emerged part with any significant worsening of your symptoms. Lastly your cardiology referral has been placed if you would like to follow-up with them as well. Clinical Impressions Clinical Impression: Atypical chest pain Discharge ED Provider: Owen Jolley HPI General Chief Complaint: Chest Pain Stated Complaint: chest pain Time Seen by Provider: 12/19/23 10:25 Mode of Arrival: Ambulatory Source of Information: Patient Limitations: No Limitations Description of Symptoms (Recalled from ER Triage Doc. by RN): Patient reports left sided chest pain since last night. States he has had on and off chest pain for awhile and was recently seen at [place] for this. States they recommended he follow up with a assistant speech language pathologist and he has been unable to do so. History of Present Illness HPI narrative: Patient is a 38-year-old male presents today with left anterior chest pain. This is nonexertional not associated with dyspnea is worse with touch and at times gets worse with laying down at night. Has a history of GERD but states this feels different than that in the past. Also states that he went to [facility] several months ago for similar symptoms was worked up and negative and was subsequently supposed to follow-up with cardiology get a coronary CTA but his insurance has denied this. States that he is having left anterior chest pain since yesterday evening about 7 PM. It has been constant. Only making it worse with touch. Does have a history of smoking and has been coughing regularly recently. Denies any definitive history of coronary artery disease lower extremity swelling prolonged immobilizations hemoptysis etc. Related Data Previous Rx's Medication Instructions Recorded sulfamethoxazole 800 1 each PO BID 10 days #20 tabs 12/18/20 mg-trimethoprim 160 mg tablet azithromycin 250 mg tablet 250 mg PO UD DOSE PK #6 tabs 10/03/23 (Zithromax) benzonatate 100 mg capsule 100 mg PO TIDP PRN Cough #30 caps 10/03/23 ondansetron 4 mg disintegrating 4 mg PO Q8H PRN Nausea #8 tabs 10/03/23 tablet doxycycline hyclate 100 mg capsule 100 mg PO BID 10 days #20 caps 11/19/23 prednisone 50 mg tablet 50 mg PO DAILY 5 days #5 tabs 11/19/23 loperamide 2 mg capsule 2 mg PO Q6H PRN loose stool 5 days 12/06/23 #20 caps ondansetron 4 mg disintegrating 4 mg PO Q6H PRN nausea and 12/06/23 tablet vomiting 5 days #20 tabs Allergies Allergy/AdvReac Type Severity Reaction Status Date / Time No Known Allergies Allergy Verified 12/18/20 17:31 [facility] Disclaimer: The information contained in this section may have been updated after the patient was seen, as this information can be updated by other users. Social History (Updated 10/05/23 @ 11:10 by Derik Martinez APRN) Smoking Status: Current every day smoker alcohol intake: never current occupational status: other Travel in the last 8 weeks: None ROS Obtained: Yes All systems reviewed & no additional complaints except as documented Physical Exam General General appearance: alert and in no apparent distress Chest Chest inspection: Present tenderness (Left anterior chest wall pain reproducing pain) Respiratory Respiratory exam: Present normal lung sounds bilaterally; Absent respiratory distress Cardiovascular Cardiovascular exam: Present regular rate and normal rhythm Abdominal Exam Abdominal exam: Present soft; Absent distention or tenderness Neurological Exam Neurological exam: Present alert and oriented X3 HEART Score HEART Score HEART Score assessment performed?: Yes History (anamnesis): Slightly suspicious ECG: Normal Age: <45 years Risk factors: 1-2 risk factors Troponin: </= normal limit HEART Score: 1 Critical Care Critical Care Time Critical Care Time: No Medical Decision Making Basil Inquiry Pt receiving controlled substance: No Vital Signs Vital Signs: 12/19/23 10:11 12/19/23 10:30 12/19/23 11:30 Temperature 97.6 F 98.7 F Temperature Source Oral Oral Pulse Rate 83 73 Pulse Rate [Radial] 86 Respiratory Rate 16 14 18 Blood Pressure 137/97 H 116/89 Blood Pressure [Right Arm] 135/89 Blood Pressure Mean [Right Arm] 104 Blood Pressure Source Automatic Cuff Blood Pressure Source [Right Arm] Automatic Cuff Blood Pressure Position Supine Blood Pressure Position [Right Arm] Sitting 02 Sat by Pulse Oximetry 99 100 Oxygen Delivery Method Room Air Room Air Lab Data Lab results reviewed: Yes I reviewed the patient's lab results. Labs: Lab Results 12/19/23 10:12: WBC 6.8, RBC 4.97, Hgb 14.1, Hct 43.7, MCV 87.8, MCH 28.3, MCHC 32.2, RDW 14.2, Plt Count 272, MPV 7.2 L, Neut % (Auto) 44.4, Lymph % (Auto) 41.9, [place] % (Auto) 7.2, Eos % (Auto) 5.2, Baso % (Auto) 1.4, Neut # (Auto) 3.0, Lymph # (Auto) 2.9, [place] # (Auto) 0.5, Eos # (Auto) 0.4, Baso # (Auto) 0.1, Sodium 139, Potassium 4.3, Chloride 105, Carbon Dioxide 28, Anion Gap 10.3, BUN 13, Creatinine 0.80, Estimated Creat Clear 205, Estimated GFR 109, Est GFR ( Amer) 132, Glucose 104 H, Calcium 9.3, Total Bilirubin 0.5, AST 32, ALT 35, Alkaline Phosphatase 65, Troponin I < 0.01, Total Protein 7.4, Albumin 4.1, Globulin 3.3 H, Albumin/Globulin Ratio 1.2, Lipase 105 12/19/23 10:12 12/19/23 10:12 Response Orders (Tests/Meds): ED MEDICATIONS Generic Name Dose Route Start Last Admin Trade Name Freq PRN Reason Stop Dose Admin Sodium Chloride 10 ml 12/19/23 10:19 Sodium Chloride 0.9% 10ml Flush Syringe IV 01/18/24 10:18 NEEDED PRN Maintain IV Site Discontinued Medications Generic Name Dose Route Start Last Admin Trade Name Freq PRN Reason Stop Dose Admin Belladonna Alkaloids 60 ml 12/19/23 10:40 12/19/23 10:57 Belladonna Alkaloids 60 Ml Ml PO 12/19/23 10:41 60 ml ONCE ONE Administration Ketorolac Tromethamine 15 mg 12/19/23 10:40 12/19/23 10:56 Ketorolac 30mg/Ml Vial IV 12/19/23 10:41 15 mg ONCE ONE Administration ORDERS Category Date Time Status Chest XR -- portable [XR chest portable] Stat Exams 12/19/23 10:19 Taken Complete Blood Count Man Dif Stat Lab 12/19/23 10:12 Results Comprehensive Metabolic Panel Stat Lab 12/19/23 10:12 Completed Lipase Stat Lab 12/19/23 10:12 Completed Troponin I Q3H Lab 12/19/23 13:30 Ordered Troponin I Q3H Lab 12/19/23 16:30 Ordered Troponin I Stat Lab 12/19/23 10:12 Completed ECG Data Tracing #1: Attestation: I reviewed this ECG and interpreted as documented below: ECG Narrative: Ventricular rate of 80 normal axis no acute ischemic changes noted no significant duction abnormalities normal EKG MDM Narrative Medical Decision Narrative: AdditionVery well-appearing 38-year-old male presents today with over 12 hours of ongoing chest pain located left anterior lateral aspect of the chest wall. It is reproducible to touch suggesting this is most likely musculoskeletal in nature and possibly from recent coughing. He has no other high risk factors from a coronary artery standpoint we will get a single troponin given the duration to rule out any myocardial injury or acute coronary syndrome. EKG was nonischemic. Chest x-ray was performed which I personally interpreted shows no acute cardiopulmonary emergency. I had an extensive discussion with him regarding risk and benefits of downstream noninvasive cardiac imaging which he understood. No emergent indication for coronary CTA he will follow-up outpatient with his assistant speech language pathologist I will also give him a referral to our sleep. Will reassess after his therapeutic medications were administered. Esophageal pathology certainly still on the differential as well. Reassessment 1132 patient did feel significantly better after GI cocktail and Toradol. This suggest that his pathology is either musculoskeletal or GI in nature. Will have him follow-up with our surgeon for an outpatient endoscopy and he will start [id number] Pepcid. He states he had significant treatment and that his chest discomfort when he stopped smoking marijuana the past we discussed different modalities of this and whether or not that is safe and effective for his anxiety. Over all there is no evidence of cardiopulmonary emergency was discharged in stable condition.
--- NOTE | 2023-12-19 10:51 | PC.NURSE ---
Rounded on patient, no needs voiced at this time.
[2023-12-19] MEDS: KETOROLAC 30MG/ML VIAL 15 MG IV (10:56)
[2023-12-19] MEDS: BELLADONNA ALKALOIDS 60 ML ML PO (10:57)
[2023-12-19 11:02] LABS: Lipase 105 U/L (23-300)
[2023-12-19 11:30] VITALS: BP 116/89; PULSE 73; RESP 18; TEMP 37.1; O2SAT 99
[2023-12-19 11:54] LABS: Eosinophils % 3 % (0-3); Lymphocytes % 50 % (10-50); Monocytes % 4 % (2-9); Neutrophils % 43 % (42-76); Total Cells Counted 100
[2023-12-19 12:00] LABS: Platelet Estimate Normal; RBC Morphology Normal
== END 2023-12-19 11:34 | disposition home or self-care (01) ==
PROVIDERS: Emergency Provider Student in an Organized Health Care Education/Training Program
DX: R07.89 Other chest pain (principal); K21.9 Gastro-esophageal reflux disease without esophagitis; R05.9 Cough, unspecified; F17.210 Nicotine dependence, cigarettes, uncomplicated
CPT/HCPCS: 71045; 80053; 83690; 84484; 85007; 85014; 85018; 85048; 85049; 93005; 96374; 99284

== ENCOUNTER 2024-05-14 22:24 | Emergency (ER) | payer MEDICAID, SELFPAY ==
[2024-05-14 22:24] VITALS: BP 150/118; PULSE 110; RESP 20; TEMP 36.7; O2SAT 97; BMI 39.6
[2024-05-14 22:28] VITALS: PULSE 110
[2024-05-14 22:30] VITALS: BP 186/123; PULSE 101; O2SAT 100
--- NOTE | 2024-05-14 22:38 | XR_ITS ---
PROCEDURE INFORMATION: Exam: XR Chest Exam date and time: 05/14/2024 10:52 PM Age: 38 years old Clinical indication: Dyspnea TECHNIQUE: Imaging protocol: Radiologic exam of the chest. Views: 1 view. COMPARISON: CR XR CHEST PORTABLE 12/19/2023 10:34 AM FINDINGS: Lungs: No evidence of acute pulmonary disease or infiltrates Pleural spaces: No large effusion or pneumothorax. Heart/Mediastinum: No evidence of mediastinal widening or cardiac silhouette enlargement; the mediastinum and heart appear within normal limits for contour and size. Bones/joints: No evidence of acute osseous abnormalities within the visualized portions of the thoracic spine and ribs. Osseous structures appear appropriate for patient age. IMPRESSION: No dense parenchymal consolidation, pleural effusion, or pneumothorax.
[2024-05-14 22:47] LABS: Basophils # 0.1 K/mm3 (0-0.2); Basophils % 1.2 % (0.1-2.0); Eosinophils # 0.2 K/mm3 (0.0-0.4); Eosinophils % 1.9 % (0.1-12.0); Hemoglobin 15.8 g/dL (14.1-18.0); Lymphocytes # 3.1 K/mm3 (0.7-4.5); Lymphocytes % 28.9 % (10-50); Mean Corpuscular HGB Conc 34.3 g/dL (31.8-35.4); Mean Corpuscular Volume 84.6 fl (80-94); Monocytes % 8.9 % (1.7-9.3); Neutrophils # 6.4 K/mm3 (1.8-7.8); Platelet Count 313 K/mm3 (142-424); Red Blood Count 5.44 M/mm3 (4.60-6.20); Red Cell Distribution Width 14.1 % (11.5-17.5); White Blood Count 10.8 K/mm3 (4.8-10.8)
--- NOTE | 2024-05-14 22:50 | [facility].EDCP ---
Discharge Plan Disposition Patient Disposition: Still a Patient Prescriptions Prescriptions: No Action sulfamethoxazole-trimethoprim 1 EACH tablet 1 each PO BID 10 Days Qty: 20 0RF azithromycin [Zithromax] 250 mg tablet 250 mg PO UD DOSE PK Qty: 6 0RF Rx Instructions: Take two (2) tablets today, then one (1) tablet days #2 thru #5 benzonatate [benzonatate] 100 mg capsule 100 mg PO TIDP PRN (Reason: Cough) Qty: 30 0RF ondansetron 4 mg Tablet,Disintegrating 4 mg PO Q8H PRN (Reason: Nausea) Qty: 8 0RF doxycycline hyclate 100 mg capsule 100 mg PO BID 10 Days Qty: 20 0RF prednisone 50 mg tablet 50 mg PO DAILY 5 Days Qty: 5 0RF loperamide 2 mg capsule 2 mg PO Q6H PRN (Reason: loose stool) 5 Days Qty: 20 0RF Rx Instructions: Please take 4 mg initially, followed by 2 mg after each loose stool, maximum 16 mg/day ondansetron 4 mg tablet,disintegrating 4 mg PO Q6H PRN (Reason: nausea and vomiting) 5 Days Qty: 20 0RF Referrals Follow up/Referrals: [facility] Mendez [Primary Care Provider] - See instructions Clinical Impressions Clinical Impression: Atypical chest pain, Anxiety Print Language Print Language: Thai Discharge ED Provider: Owen Jolley [facility] General Chief Complaint: Chest Pain Stated Complaint: chest pain Time Seen by Provider: 05/14/24 22:24 Mode of Arrival: EMS Source of Information: Patient and Parent(s) Limitations: No Limitations Description of Symptoms (Recalled from ER Triage Doc. by RN): pt reports chest pain that is midsternal and radiates to the left side and down the left side. pt denies any changes with inhalation and exhalation. pt reports changes recently made in home anxiety and depressive medications History of Present Illness HPI narrative: Patient is a 38-year-old male with a history of PTSD bipolar 1 disorder who has been on numerous serotonergic drugs recently that he had multiple manic episodes last week and had multiple medication changes. He states that for the last 4 days he has been dizzy recently stopped one of his SSRIs and his dizziness went away but he began to have chest pain today. Began 2 hours prior to arrival located left anterior chest wall nonexertional no dyspnea not associated with radiation etc. He states he is very anxious right now. No history of coronary disease no fevers chills cough etc. Related Data Previous Rx's ?Medication ?Instructions ?Recorded sulfamethoxazole 800 1 each PO BID 10 days #20 tabs 12/18/20 mg-trimethoprim 160 mg tablet azithromycin 250 mg tablet 250 mg PO UD DOSE PK #6 tabs 10/03/23 (Zithromax) benzonatate 100 mg capsule 100 mg PO TIDP PRN Cough #30 caps 10/03/23 ondansetron 4 mg disintegrating 4 mg PO Q8H PRN Nausea #8 tabs 10/03/23 tablet doxycycline hyclate 100 mg capsule 100 mg PO BID 10 days #20 caps 11/19/23 prednisone 50 mg tablet 50 mg PO DAILY 5 days #5 tabs 11/19/23 loperamide 2 mg capsule 2 mg PO Q6H PRN loose stool 5 days 12/06/23 #20 caps ondansetron 4 mg disintegrating 4 mg PO Q6H PRN nausea and 12/06/23 tablet vomiting 5 days #20 tabs Allergies Allergy/AdvReac Type Severity Reaction Status Date / Time No Known Allergies Allergy Verified 12/18/20 17:31 [facility] Disclaimer: The information contained in this section may have been updated after the patient was seen, as this information can be updated by other users. Social History (Updated 10/05/23 @ 11:10 by Derik Martinez APRN) Smoking Status: Former smoker alcohol intake: never current occupational status: other Travel in the last 8 weeks: None ROS Obtained: Yes All systems reviewed & no additional complaints except as documented Physical Exam General General appearance: anxious Chest Chest inspection: Present normal inspection and symmetric chest wall rise Respiratory Respiratory exam: Present normal lung sounds bilaterally; Absent respiratory distress Cardiovascular Cardiovascular exam: Present regular rate and normal rhythm Abdominal Exam Abdominal exam: Present soft; Absent distention or tenderness Neurological Exam Neurological exam: Present alert, oriented X3, CN II-XII intact and normal gait; Absent motor sensory deficit HEART Score HEART Score HEART Score assessment performed?: Yes History (anamnesis): Slightly suspicious ECG: Non-specific disturbance Age: <45 years Risk factors: No known risk factors Troponin: </= normal limit HEART Score: 1 Critical Care Critical Care Time Critical Care Time: No Medical Decision Making Basil Inquiry Pt receiving controlled substance: No Vital Signs Vital Signs: 05/14/24 22:24 Temperature 98.0 F Temperature Source Oral Pulse Rate [Right] 110 H Respiratory Rate 20 Blood Pressure [Right Arm] 150/118 H Blood Pressure Mean [Right Arm] 128 02 Sat by Pulse Oximetry 97 Oxygen Delivery Method Room Air Response Orders (Tests/Meds): ED MEDICATIONS Generic Name Dose Route Start Last Admin Trade Name Freq PRN Reason Stop Dose Admin Lactated Ringer's 1,000 mls @ 999 mls/hr 05/14/24 22:45 Lactated Ringer's 1000 Ml Bag IV 05/14/24 23:45 .Q1H1M WHITNEY Sodium Chloride 10 ml 05/14/24 22:40 Sodium Chloride 0.9% 10ml Vial IV 06/13/24 22:39 NEEDED PRN to Dilute Lorazepam inj Discontinued Medications Generic Name Dose Route Start Last Admin Trade Name Freq PRN Reason Stop Dose Admin Lorazepam 0.5 mg 05/14/24 22:40 Lorazepam 2mg/Ml Vial IV 05/14/24 22:41 ONCE ONE ORDERS Category Date Time Status CXR --portable [XR chest portable] Stat Exams 05/14/24 22:38 Ordered CBC w/Auto Diff [Complete Blood Count Auto Diff] Stat Lab 05/14/24 22:38 Ordered CMP [Comprehensive Metabolic Panel] Stat Lab 05/14/24 22:38 Ordered D-Dimer Stat Lab 05/14/24 22:39 Ordered Trop I [Troponin I] Stat Lab 05/14/24 22:38 Ordered Troponin I Q3H Lab 05/15/24 01:45 Ordered Troponin I Q3H Lab 05/15/24 04:45 Ordered ECG Data Tracing #1: Attestation: I reviewed this ECG and interpreted as documented below: ECG Narrative: Ventricular rate of [address] no significant ST elevations or depressions there are nonspecific anterior T wave inversions no significant conduction abnormalities there is normal axis MDM Narrative Medical Decision Narrative: Very well-appearing 38-year-old male who is anxious presents today with 2 hours of atypical chest pain symptoms. Unlikely to be acute coronary syndrome but given the onset of symptoms we will get serial troponins has been placed in ED observation. He is tachycardic cannot use pulmonary embolism a lot criteria will get D-dimer and utilize years criteria regarding cutoff for CT PE. EKG is on remarkable. Will get serial troponins care will be transitioned to Dr. Janet Menezes at 11 PM for final disposition.
[2024-05-14 23:03] LABS: Alanine Aminotransferase 42 U/L (12-78); Albumin Level 4.7 g/dl (3.5-5.0); Albumin/Globulin Ratio 1.3 (1.1-1.8); Alkaline Phosphatase 77 U/L (38-126); Aspartate Amino Transferase 41 U/L (17-59); Bilirubin,Total 0.6 mg/dl (0.2-1.3); Blood Urea Nitrogen 14 mg/dl (9-20); Calcium 9.8 mg/dl (8.4-10.2); Carbon Dioxide 29 mmol/L (22.0-30.0); Chloride 102 mmol/L (98-107); Creatinine Clearance Estimated 179 mL/min (50-200); Estimated Glomerular Filt Rate 95 ml/min (>60); GFR (African American) 116 ML/MIN (>60); Globulin 3.6 g/dL (1.3-3.2); Glucose 105 mg/dl (74-100); Sodium 138 mmol/L (136-145); Total Protein,Serum 8.3 g/dl (6.3-8.2)
[2024-05-14] MEDS: LORazepam 2MG/ML VIAL 0.5 MG IV (23:06)
[2024-05-14] MEDS: ACETAMINOPHEN 500MG TAB 1000 MG PO (23:06)
[2024-05-14] MEDS: LACTATED RINGERS 1000ML 1,000 ML 999 ML IV (23:06)
[2024-05-14 23:07] LABS: D-Dimer < 0.25 ug/mL (0.0-0.5)
[2024-05-14 23:30] VITALS: BP 132/99; PULSE 109; O2SAT 96
[2024-05-14 23:32] LABS: Anion Gap 10.5 mEq/L (5-15); Potassium 3.5 mmoL/L (3.5-5.1); Troponin I < 0.01 ng/ml (0.00-0.034)
--- NOTE | 2024-05-14 23:46 | ECG_ITS ---
APPROVED REPORT Exam: Resting ECG HR:120 bpm ECG Measurements Heart Rate 120 AXES PA 135 P 53 QRSd 80 QRS 73 QT 339 T 58 QTc 410 Conclusion SINUS TACHYCARDIA MODERATE T-WAVE ABNORMALITY, CONSIDER ANTERIOR ISCHEMIA [-0.1+ mV T-WAVE IN V3/V4] ABNORMAL ECG Similar to previous ECG, no dynamic changes, no STEMI Electronically signed by : GERALD MURPHY, 05/15/2024 03:26:21
[2024-05-15] VITALS: BP 132/93; PULSE 105; RESP 21; O2SAT 99
[2024-05-15 00:30] VITALS: BP 128/83; PULSE 98; RESP 16; O2SAT 98
[2024-05-15 01:02] VITALS: BP 129/79; PULSE 105; RESP 18; O2SAT 97
[2024-05-15 01:30] VITALS: BP 125/80; PULSE 109; RESP 17; O2SAT 96
[2024-05-15 02:03] LABS: Troponin I < 0.01 ng/ml (0.00-0.034)
[2024-05-15 02:14] VITALS: BP 128/83; PULSE 99; RESP 18; TEMP 36.8; O2SAT 99
== END 2024-05-15 02:16 | disposition home or self-care (01) ==
PROVIDERS: Emergency Provider Student in an Organized Health Care Education/Training Program; PCP Family Medicine
DX: R07.9 Chest pain, unspecified (principal); F41.9 Anxiety disorder, unspecified
CPT/HCPCS: 71045; 80053; 84484; 85025; 85378; 93005; 96361; 96374; 99285; J2060; J7120

== ENCOUNTER 2025-08-03 18:26 | Emergency (ER) | payer MEDICAID, SELFPAY ==
--- OUTSIDE RECORDS SUMMARY | 2025-06-11 18:28 | XMS_ITS | Encounter Summary ---
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 [address] Matthew Saldaña, [address] [place] [phone] Bronchitis (Primary Dx) Discharge Disposition: Home or Self Care Social History Tobacco Use Types Packs/Day Years Used Date Smoking Tobacco: Every Day Cigarettes Last attempted to quit: 10/02/2014 Passive Smoke Exposure: Current Smokeless Tobacco: Never Comments:1 cig per month rar urbano Alcohol Use Standard Drinks/Week Comments No 0 (1 standard drink = 0.6 oz pur e alcohol) RARELY B1300 Health Literacy Answer Date Recor ded How often do you need to hav e someone help you when you read instructions, pamphlets, or other written material from your doctor or pharmacy? Never 05/10/2024 [facility] Utilities Answer Date Recorded In the past 12 months has th e electric, gas, oil, or water company threatened to shut off services in your home? No 05/10/2024 Social Connection and Isolation Panel Answer Date Recorded In a typical week, how many times do you talk on the phone with family, friends, or neighbors? More than three times a week 05/10/2024 How often do you get togethe r with friends or relatives? Twice a week 05/10/2024 How often do you attend chur ch or buddhist services? More than 4 times per year 05/10/2024 Do you belong to any clubs o r organizations such as spiritism groups, unions, fraternal or athletic groups, or school groups? No 05/10/2024 How often do you attend meet ings of the clubs or organizations you belong to? Never 05/10/2024 Are you , , di vorced, , never , or living with a partner? Never 05/10/2024 AUDIT-C Answer Date Recorded Q1: How often do you have a drink containing alcohol? Never 05/10/2024 Q2: How many drinks containi ng alcohol do you have on a typical day when you are drinking? Patient does not drink Q3: How often do you have si x or more drinks on one occasion? Never 05/10/2024 Overall Financial Resource Strain (CARDIA) Answe r Date Recorded How hard is it for you to pa y for the very basics like food, housing, medical care, and heating? Not hard at all 05/10/2024 PHQ-2 Answer Date Recorded PHQ-2 Total Score 2 06/16/2024 [facility] - Occupational Stress Questionnaire Answer Date Recorded Do you feel stress - tense, restless, nervous, or anxious, or unable to sleep at night because your mind is troubled all the time - these days? To some extent 05/10/2024 Exercise Vital Sign Answer Date Recorde d On average, how many days pe r week do you engage in moderate to strenuous exercise (like a brisk walk)? 4 days 05/10/2024 On average, how many minutes do you engage in exercise at this level? 30 min 05/10/2024 Hunger Vital Sign Answer Date Recorded Within the past 12 months, y ou worried that your food would run out before you got the money to buy more. Never true 05/10/20 24 Within the past 12 months, t he food you bought just didn't last and you didn't have money to get more. Never true 05/10/2024 PRAPARE - Transportation Answer Date Re corded In the past 12 months, has l ack of transportation kept you from medical appointments or from getting medications? No 04/13 In the past 12 months, has l ack of transportation kept you from meetings, work, or from getting things needed for daily living? No 05/10/2024 Housing Stability Vital Sign Answer Doyle e Recorded In the last 12 months, was t here a time when you were not able to pay the mortgage or rent on time? No 05/10/2024 In the past 12 months, how m any times have you moved where you were living? 0 05/10/2024 At any time in the past 12 m [place], were you homeless or living in a assisted (including now)? No 05/10/2024 Sexually Active Control Partners Comments Yes Female Sex and Gender Information Value Date Recorded Sex Assigned at Not on file Legal Sex Male 7:29 AM EDT Gender Identity Not on file Sexual Orientation Not on file documented as of this encounter Last Filed Vital Signs Vital Sign Reading Time Taken Comments Blood Pressure 125/73 06/11/2025 8:30 PM EDT Pulse 76 06/11/2025 8:50 PM EDT Temperature 36.9 C (98.4 F) 06/11/2025 7:32 PM EDT Respiratory Rate 21 06/11/2025 8:50 PM EDT Oxygen Saturation 95% 06/11/2025 8:50 PM EDT Inhaled Oxygen Concentration - - Weight 103.4 kg (228 lb) 06/11/2025 7:24 PM EDT Height 167.6 cm (5' 6 ) 06/11/2025 7:24 PM EDT Body Mass Index 36.8 06/11/2025 7:24 PM EDT documented in this encounter Functional Status * Is the person deaf or does he/she have serious difficulty hearing? Answer Date of Assessment Author No 05/10/2024 9:41 AM EDT Malena Hancock RMA * Is the person blind or does he/she have serious difficulty seeing even when wearing glasses? Answer Date of Assessment Author No 05/10/2024 9:41 AM EDT Malena Hancock RMA * Does this person have serious difficulty walking or climbing stairs? Answer Date of Assessment Author No 05/10/2024 9:41 AM EDT Malena Hancock RMA * Does this person have difficulty dressing or bathing? Answer Date of Assessment Author No 05/10/2024 9:41 AM EDT Malena Hancock RMA * Because of a physical, mental or emotional condition, does this person have difficulty doing errands alone such as visiting a doctor's office or shopping? Answer Date of Assessment Author No 05/10/2024 9:41 AM EDT Malena Hancock RMA documented as of this encounter Mental Status * Because of a physical, mental or emotional condition, does this person have serious difficulty concentrating, remembering or making decisions? Answer Entry Date Author No 05/10/2024 9:41 AM EDT Malena Hancock RMA documented in this encounter Discharge Instructions * Attachments The following attachments cannot be sent through Care Everywhere. * Bronchitis in adults ??? ED discharge instructions (Panamanian) documented in this encounter Medications at Time of Discharge albuterol-ipratro pium (DUO-NEB) 3 mg-0.5 mg(2.5 mg base)/3 mL Inhl Solution for NebulizationIndic ations:Acute bacterial bronchitis,Exacer bation of asthma, unspecified asthma severity, unspecified whether persistent Take 3 mL by nebulization every 6 hours as needed for Shortness of Breath. 60 mL 05/22/2025 ALPRAZolam (XANAX) 0.5 mg Oral TabletIndications :panic symptoms, tremors Take 1 Tablet by mouth 2 times daily as needed for Sleep or Anxiety. Indications: panic symptoms, tremors 7 Tablet 06/08/2025 cloNIDine (CATAPRES) 0.1 mg Oral TabletIndications :Generalized anxiety disorder Take 1 Tablet by mouth 2 times daily. 60 Tablet 2 08/30/2024 escitalopram oxalate (LEXAPRO) 10 mg Oral TabletIndications :Chronic post-traumatic stress disorder (PTSD),Major depressive disorder, recurrent severe without psychotic features (HCC) Take 1 Tablet by mouth daily. 100 Tablet 1 02/23/2025 ibuprofen (ADVIL;MOTRIN) 200 mg Oral Tablet Take 200 mg by mouth every 8 hours as needed for Pain or Fever. 5 lumateperone 21 mg Oral CapsuleIndication s:depression associated with bipolar disorder Take 21 mg by mouth daily. Indications: bipolar depression 30 Capsule 04/14/2025 5 methylPREDNISolon e (MEDROL DOSPACK) 4 mg Oral Tablets, Dose PackIndications:A cute bacterial bronchitis,Exacer bation of asthma, unspecified asthma severity, unspecified whether persistent See package instructions 21 Tablet 05/22/2025 5 predniSONE (DELTASONE) 10 mg Oral Tablet 6day taper- Day 1: 6 tabs in AM; Day 2: 5 tabs in AM; Day 3: 4 tabs in AM; Day 4: 3 tabs in AM; Day 5: 2tabs in AM; Day 6 -1 tab in AM 21 Tablet 06/11/2025 5 documented as of this encounter Ordered Prescriptions Prescription Sig Dispense Quantity Refills Last Filled Start Date End Date predniSONE (DELTASONE) 10 mg Oral Tablet 6day taper- Day 1: 6 tabs in AM; Day 2: 5 tabs in AM; Day 3: 4 tabs in AM; Day 4: 3 tabs in AM; Day 5: 2tabs in AM; Day 6 -1 tab in AM 21 Tablet 06/11/2025 06/17/2025 documented in this encounter Discharge Disposition Disposition Code Departure Means Destination Comment s Home or Self Senior Care documented in this encounter ED Notes * Brenda Xiao, AQUA AMMONIA OPERATOR - 06/11/2025 7:20 PM EDT CHIEF COMPLAINT Chief Complaint Patient presents with Bronchitis X week: dry cough/ tried alb/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 male who presents with complaints of cough with chest pain. The patienttells me he has had chest pain for a while but states this has worsened over the last week. The patient equates his symptoms to frequent smoking of marijuana. He states he has since converted to edibles. He has no cardiac history with no history of MT or coronary artery stent placement. He has nohistory of hypercholesteremia or diabetes. His only cardiac risk factor is smoking of marijuana andhypertension. He is prescribed clonidine. He has a known history of juvenile asthma, anxiety, and depression. REVIEW OF SYSTEMS See HPI for further details. Review of systems otherwise negative. PAST MEDICAL HISTORY Past Medical History[1] FAMILY HISTORY Family History[2] SOCIAL HISTORY Social History[3] SURGICAL HISTORY Surgical History[4] CURRENT MEDICATIONS Current Medications[5] ALLERGIES Allergies[6] PHYSICAL EXAM VITAL SIGNS: ED Triage Vitals Temp 06/11/251931 98.4 ??F (36.9 ??C) Pulse 06/11/251923 98 Resp 06/11/251923 19 BP 06/11/251929 124/70 SpO2 06/11/251923 98 % Height 06/11/251923 5' 6 (1.676 m) Weight 06/11/251923 228 lb (103.4 kg) Constitutional: Well developed, Well nourished, No acute distress, Non-toxic appearance. HENT: Normocephalic, Atraumatic, Bilateral external ears normal, Oropharynx moist, No oral exudates, Nose normal. Eyes: PERRLA, EOMI, Conjunctiva normal, No discharge. Neck: Normal range of motion, No tenderness, Supple, No stridor. Cardiovascular: Regular rate, no murmurs, gallops, clicks Thorax & Lungs: Faint sparse expiratory wheeze, no rales, no stridor, no accessory muscle use, no respiratory distress, 98% RA Abdomen: Bowel sounds normal, Soft, No tenderness, No masses, No pulsatile masses. Skin: Warm, Dry, No erythema, No rash. Back: No tenderness, No CVA tenderness. Extremities: Intact distal pulses, No tenderness, No cyanosis. Neurologic: Alert & oriented x 3, Normal motor function, Normal sensory function, No focal deficits noted. Heart score: 1 EKG EKG Interpretation Interpreted by Brenda Xiao APRN Rhythm: NSR Rate: 80 bpm Stephenson: normal Ectopy: none Conduction: normal ST Segments: no acute change T Waves: no acute change Q Waves: none Clinical Impression: NSR-no acute change compared to 04/09/2025 LAB/RADIOLOGY/PROCEDURES Results for orders placed or performed during the hospital encounter of 06/11/25 XR CHEST AP PORTABLE Narrative XR CHEST AP PORTABLE, 06/11/2025 7:43 PM CLINICAL HISTORY: Acute chest pain. Congestion. COMPARISON: 04/10/2025. PROCEDURE COMMENTS: AP portable technique. FINDINGS: Stable radiographic appearance of the heart and pulmonary vascular structures. No evidence of acute pulmonary edema. The lungs are clear. No visualized pneumothorax or pleural effusions. Impression No acute intrathoracic process. - Note: Radiology results need to be interpreted within a comprehensive clinical context. If you have questions about the radiology report, please contact the office of the ordering clinician. CBC WITH DIFF Result Value Ref Range WBC 5.7 3.7 - 10.3 x10(3)/mcL RBC 4.73 4.60 - 6.10 x10(6)/mcL Hgb 13.6 (L) 13.7 - 17.5 g/dL Hct 41.4 40.0 - 51.0 % MCV 87.5 80.0 - 100.0 fL MCH 28.8 26.0 - 34.0 pg MCHC 32.9 30.7 - 35.5 g/dL RDW 13.3 <=14.9 % Platelet 226 155 - 369 x10(3)/mcL MPV 8.8 8.8 - 12.5 fL Neut Percent 44.2 % Imm Gran% 0.2 % Lymph Percent 29.6 % [place]ñuel[place] Percent 8.7 % Eos Percent 16.6 % Baso Percent 0.7 % Neut # 2.5 1.6 - 6.1 x10(3)/mcL IMMGRAN# 0.0 0.0 - 0.1 x10(3)/mcL Lymph # 1.7 1.2 - 3.9 x10(3)/mcL Peñuelas # 0.5 0.3 - 0.9 x10(3)/mcL Eos# 1.0 (H) 0.0 - 0.5 x10(3)/mcL Baso # 0.0 0.0 - 0.1 x10(3)/mcL COMPREHENSIVE METABOLIC PANEL Result Value Ref Range Sodium 139 136 - 145 mmol/L Potassium 4.1 3.5 - 5.0 mmol/L Chloride 106 98 - 107 mmol/L Total CO2 25 22 - 29 mmol/L Anion Gap 8 7 - 16 mmol/L Calcium 8.8 8.6 - 10.4 mg/dL Glucose Lvl 112 (H) 70 - 99 mg/dL BUN 8 6 - 20 mg/dL Creatinine 0.92 0.67 - 1.30 mg/dL Albumin 3.9 3.5 - 5.2 gm/dL Total Protein 6.8 6.4 - 8.3 gm/dL Bili Total 0.3 0.2 - 1.4 mg/dL ALT 19 <=41 U/L AST 16 <=40 U/L Alk Phos 83 40 - 129 U/L eGFR (CKD-EPIcr 2020) 110 >=60 mL/min/1.73 m2 TROPONIN-T HIGH SENSITIVITY BASELINE W/ REFLEX Result Value Ref Range un-aMixfrbze-D <6 <22 ng/L Narrative Ingestion of jong doses of biotin (>5 mg/day) taken within 8 hours of drawing blood sample can interfere with this immunoassay test. EK EKG 12 LEAD Narrative NOTICE: Preliminary tracing available for review; Final Interpretation by physician to follow. Isaac Williamsonzabemaximiliano Mcpherson Test Date: 2025-06-11 Pat Name: JUAN CARLOS MIGUEL Department: DEPID Room: 11 Gender: Male Fur Buyer: NICHOL : 1985 Requested By: MATTHEW SALDAÑA Order Number: [id number] Reading MD: Measurements Intervals Stephenson Rate: 80 P: 36 VA: 154 QRS: 43 QRSD: 85 T: 30 QT: 353 QTc: 408 Interpretive Statements SINUS RHYTHM POSSIBLE RIGHT VENTRICULAR CONDUCTION DELAY MODERATE T-WAVE ABNORMALITY, CONSIDER ANTERIOR ISCHEMIA COURSE & MEDICAL DECISION MAKING Pertinent Labs & Imaging studies reviewed. (See chart for details) This patient arrives with continued cough complaints with chest pain. The patient tells me he has had chest pain for quite some time and states this worsened over the last week. He has no history of bleeding or clotting disorder. I have low clinical concern for acute pulmonary emboli etiology. Cardiac risk factors include smoking and marijuana with hypertension. He is prescribed clonidine. He arrives normotensive 124/70. He arrives afebrile satting 96% on room air. He does have inhalers with nebulizer treatments at home. Chest imaging was obtained. Chest x-ray findings are negative for infiltrate, fluid overload, or acute abnormal findings. EKG findings revealed a normal sinus rhythm with a rate of 80 with no acute ischemia compared to previous EKG 04/09/25. Straight stick labs were obtained with troponin although my concern for acute coronary syndrome etiology is very low. He was bronchodilator during ED course and given oral steroids. Troponin is less than 6. Heart score is 1. He does not require delta troponin as he has been symptomatic for a week. I do feel he could benefit from pulmonary evaluation. He tells me he has not had pulmonary function test. I prescribed another course of prednisone with referral to Dr. Lee next week. He is agreeable for discharge plan or care with outpatient follow-up. FINAL IMPRESSION 1. Bronchitis [1] Past Medical History: Diagnosis Date Anxiety Asthma As a child Dental abscess 07/17/2023 Depression Hypertension Obesity, Class II, BMI 35-39.9 10/26/2015 Toe amputation status Partial [2] Family History Problem Relation Age of Onset Alcohol Abuse Father Alcohol Abuse Brother Anesth Problems Neg Hx [3] Social History Socioeconomic History Marital status: Single Spouse name: None Number of children: None Years of education: None Highest education level: None Tobacco Use Smoking status: Every Day Current packs/day: 0.00 Types: Cigarettes Last attempt to quit: 10/02/2014 Years since quittin.6 Passive exposure: Current Smokeless tobacco: Never Tobacco comments: 1 cig per month rarely Vaping Use Vaping status: Never Used Substance and Sexual Activity Alcohol use: No Comment: RARELY Drug use: Yes Types: Marijuana, Opioids Comment: everyday Sexual activity: Yes Partners: Female Social Drivers of Health Financial Resource Strain: Low Risk (05/10/2024) Overall Financial Resource Strain (CARDIA) Difficulty of Paying Living Expenses: Not hard at all Food Insecurity: No Food Insecurity (05/10/2024) Hunger Vital Sign Worried About Running Out of Food in the Last Year: Never true Ran Out of Food in the Last Year: Never true Transportation Needs: No Transportation Needs (05/10/2024) PRAPARE - Transportation Lack of Transportation (Medical): No Lack of Transportation (Non-Medical): No Physical Activity: Insufficiently Active (05/10/2024) Exercise Vital Sign Days of Exercise per Week: 4 days Minutes of Exercise per Session: 30 min Stress: Stress Concern Present (05/10/2024) [employer] [place] [employer] [facility] - Occupational Stress Questionnaire Feeling of Stress : To some extent Social Connections: Moderately Isolated (05/10/2024) Social Connection and Isolation Panel Frequency of Communication with Friends and Family: More than three times a week Frequency of Social Gatherings with Friends and Family: Twice a week Attends Hoahaoism Services: More than 4 times per year Active Member of Clubs or Organizations: No Attends Club or Organization Meetings: Never Marital Status: Never Intimate Partner Violence: Not At Risk (05/10/2024) Humiliation, Afraid, Rape, and Kick questionnaire Fear of Current or Ex-Partner: No Emotionally Abused: No Physically Abused: No Sexually Abused: No Housing Stability: Low Risk (05/10/2024) Housing Stability Vital Sign Unable to Pay for Housing in the Last Year: No Number of Times Moved in the Last Year: 0 Homeless in the Last Year: No [4] Past Surgical History: Procedure Laterality Date CARPAL TUNNEL RELEASE Right 07/01/2024 Right carpal tunnel release; Surgeon: Clay Lilly MD; Location: [facility]; Service: Hand CHOLECYSTECTOMY, LAPAROSCOPIC N/A 01/18/2016 LAPAROSCOPIC CHOLECYSTECTOMY ; Surgeon: Everett Lion MD; Location: [facility] OR; Service: General TOE AMPUTATION Left left great toe [5] No current facility-administered medications for this encounter. Current Outpatient Medications: albuterol-ipratropium (DUO-NEB) 3 mg-0.5 mg(2.5 mg base)/3 mL Inhl Solution for Nebulization, Take 3 mL by nebulization every 6 hours as needed for Shortness of Breath., Disp: 60 mL, Rfl: 0 ALPRAZolam (XANAX) 0.5 mg Oral Tablet, Take 1 Tablet by mouth 2 times daily as needed for Sleep or Anxiety. Indications: panic symptoms, tremors, Disp: 7 Tablet, Rfl: 0 cloNIDine (CATAPRES) 0.1 mg Oral Tablet, Take 1 Tablet by mouth 2 times daily., Disp: 60 Tablet, Rfl: 2 escitalopram oxalate (LEXAPRO) 10 mg Oral Tablet, Take 1 Tablet by mouth daily., Disp: 100 Tablet, Rfl: 1 ibuprofen (ADVIL;MOTRIN) 200 mg Oral Tablet, Take 200 mg by mouth every 8 hours as needed for Pain or Fever. (Patient not taking: Reported on 05/22/2025), Disp: , Rfl: lumateperone 21 mg Oral Capsule, Take 21 mg by mouth daily. Indications: bipolar depression (Patient not taking: Reported on 05/22/2025), Disp: 30 Capsule, Rfl: 0 methylPREDNISolone (MEDROL DOSPACK) 4 mg Oral Tablets, Dose Pack, See package instructions (Patientnot taking: Reported on 06/11/2025), Disp: 21 Tablet, Rfl: 0 predniSONE (DELTASONE) 10 mg Oral Tablet, 6day taper- Day 1: 6 tabs in AM; Day 2: 5 tabs in AM; Day3: 4 tabs in AM; Day 4: 3 tabs in AM; Day 5: 2tabs in AM; Day 6 -1 tab in AM, Disp: 21 Tablet, Rfl:0 [6] No Known Allergies Brenda Xiao APRN 06/11/252046 Cosigned by Matthew Saldaña DO at 06/11/2025 9:51 PM EDT Associated attestation - Matthew Saldaña DO - 06/11/2025 9:51 PM EDT Emergency medicine attending supervisory note: I have reviewed the presenting complaint, exam, workup, and treatment plan of the advanced practiceclinician (APC). I either directly discussed the patient's information and plan of care with the APC or was immediately available to discuss any concerns, personally examine the patient, and/or manage complications if needed. I personally approved the management plan for this patient and take responsibility for the patient management. I interpreted EKG/x- rays independently and the results, when performed, are described as below. Based on my review of the information available, I believe the impression and treatment plan are reasonable and that there is a very low likelihood of deterioration that could result in disability or . EKG Interpretation Interpreted by me Rhythm: normal sinus Rate: 80 Stephenson: normal Ectopy: none Conduction: normal ST Segments: no acute change T Waves: no acute change Q Waves: none Clinical Impression: no acute changes and normal EKG This chart was completed using voice recognition technology and may contain unintended errors documented in this encounter Plan of Treatment Upcoming Encounters Date Type Department Care Team (Late st Contact Info) Description 01/04/2026 2:00 PM EDT Office Visit [facility] Dermatology [facility] [address] [facility] [address] [place] [id number] Serjio Rapp MD [address] [place] [address] documented as of this encounter Goals Goal Patient Goal Type Associated Problems Recent Progress Patient-Stated? Author Blood Pressure < 140/90 Blood Pressure 125/73(2024 8:30 PM EDT) No Starla Olivares APRN Maintain a healthy diet, exercise regularly and maintain an ideal body weight General No Diamond Lester LPN Stay Tobacco Free Lifestyle No Diamond Lester LPN documented as of this encounter Procedures Procedure Name Priority Date/Time Associated Diagnosis Comments SCANNED EKG 06/13/2025 7:40 AM EST TROPONIN-T HIGH SENSITIVITY BASELINE W/ REFLEX STAT 06/11/2025 7:48 PM EDT CBC WITH DIFF STAT 06/11/2025 7:48 PM EDT COMPREHENSIVE METABOLIC PANEL STAT 06/11/2025 7:48 PM EDT XR CHEST AP PORTABLE JEANNIE 06/11/2025 7:43 PM EDT EK EKG 12 LEAD STAT 06/11/2025 7:29 PM EDT documented in this encounter Results * SCANNED EKG (06/13/2025 7:40 AM EST) Anatomical Region Laterality Modality Other 06/13/2025 7:40 AM EST us Unknown Provider IMG ECG ORDERABLES Final Result * TROPONIN-T HIGH SENSITIVITY BASELINE W/ REFLEX (06/11/2025 7:48 PM EDT) wv-zNfvqjokg-Q <6 <22 ng/L 06/11/2025 8:08 PM EDT [facility] Blood VENOUS BLOOD / Unknown Venipuncture / Unknown 06/11/2025 7:48 PM EDT 06/11/2025 7:49 PM EDT Narrative [facility] - 06/11/2025 8:08 PM EDT Ingestion of jong doses of biotin (>5 mg/day) taken within 8 hours of drawing blood sample can interfere with this immunoassay test. Brenda Lynn Dameon AQUA AMMONIA OPERATOR CHEMISTRY ORDERABLES Final Result [facility] [address] [place] [address] * (ABNORMAL) COMPREHENSIVE METABOLIC PANEL (06/11/2025 7:48 PM EDT) Sodium 139 136 - 145 mmol/L 06/11/2025 8:08 PM EDT [facility] Potassium 4.1 3.5 - 5.0 mmol/L 06/11/2025 8:08 PM EDT [facility] Chloride 106 98 - 107 mmol/L 06/11/2025 8:08 PM EDT [facility] Total CO2 25 22 - 29 mmol/L 06/11/2025 8:08 PM T [facility] Anion Gap 8 7 - 16 mmol/L 06/11/2025 8:08 PM T [facility] Calcium 8.8 8.6 - 10.4 mg/dL 06/11/2025 8:08 PM T [facility] Glucose Lvl 112(H) 70 - 99 mg/dL 06/11/2025 8:08 PM EDT [facility] BUN 8 6 - 20 mg/dL 06/11/2025 8:08 PM T [facility] Creatinine 0.92 0.67 - 1.30 mg/dL 06/11/2025 8:08 PM T [facility] Albumin 3.9 3.5 - 5.2 gm/dL 06/11/2025 8:08 PM T [facility] Total Protein 6.8 6.4 - 8.3 gm/dL 06/11/2025 8:08 PM T [facility] Bili Total 0.3 0.2 - 1.4 mg/dL 06/11/2025 8:08 PM T [facility] ALT 19 <=41 U/L 06/11/2025 8:08 PM EDT [facility] AST 16 <=40 U/L 06/11/2025 8:08 PM EDT [facility] Alk Phos 83 40 - 129 U/L 06/11/2025 8:08 PM EDT [facility] eGFR (CKD-EPIcr 2020) 110 >=60 mL/min/1.7 3 m2 06/11/2025 8:08 PM EDT [facility] Comment:Estimated GFR was ca lculated using the CKD-EPIcr (2020) equation refit without race. The equation is recommended by the [employer] - [place] [employer]ph[employer] Task Force. Blood VENOUS BLOOD / Unknown Venipuncture / Unknown 06/11/2025 7:48 PM EDT 06/11/2025 7:49 PM EDT us Brenda Xiao AQUA AMMONIA OPERATOR CHEMISTRY ORDERABLES Final Result [facility] [address] [place] [address] * (ABNORMAL) CBC WITH DIFF (06/11/2025 7:48 PM EDT) WBC 5.7 3.7 - 10.3 x10(3)/mcL 06/11/2025 7:53 PM EDT [facility] RBC 4.73 4.60 - 6.10 x10(6)/mcL 06/11/2025 7:53 PM EDT [facility] Hgb 13.6(L) 13.7 - 17.5 g/dL 06/11/2025 7:53 PM EDT [facility] Hct 41.4 40.0 - 51.0 % 06/11/2025 7:53 PM EDT [facility] MCV 87.5 80.0 - 100.0 fL 06/11/2025 7:53 PM EDT [facility] MCH 28.8 26.0 - 34.0 pg 06/11/2025 7:53 PM EDT [facility] MCHC 32.9 30.7 - 35.5 g/dL 06/11/2025 7:53 PM EDT [facility] RDW 13.3 <=14.9 % 06/[facility] Platelet 226 155 - 369 x10(3)/[facility] 06/11/2025 7:53 PM [facility] MPV 8.8 8.8 - 12.5 fL 06/11/2025 7:53 [facility] Neut Percent 44.2 % 06/11/2025 7:53 PM [facility] Comment:Neutrophils equals s egs plus bands Imm Gran% 0.2 % 06/11/2025 7:53 PM [facility] Comment:Automated count of m etamyelocytes, myelocytes and promyelocytes. Lymph Percent 29.6 % 06/11/2025 7:53 PM [facility] [place] Percent 8.7 % 06/11/2025 7:53 PM [facility] Eos Percent 16.6 % 06/11/2025 7:53 PM [facility] Baso Percent 0.7 % 06/11/2025 7:53 PM [facility] Neut # 2.5 1.6 - 6.1 x10(3)/[facility] 06/11/2025 7:53 PM [facility] Comment:Neutrophils equals s egs plus bands IMMGRAN# 0.0 0.0 - 0.1 x10(3)/[facility] 06/11/2025 7:53 PM [facility] Comment:Automated count of m etamyelocytes, myelocytes and promyelocytes. An absolute IG <0.1 is reported as 0.0. Lymph # 1.7 1.2 - 3.9 x10(3)/[facility] 06/11/2025 7:53 PM [facility] [place] # 0.5 0.3 - 0.9 x10(3)/[facility] 06/11/2025 7:53 PM [facility] Eos# 1.0(H) 0.0 - 0.5 x10(3)/[facility] 06/11/2025 7:53 PM [facility] Baso # 0.0 0.0 - 0.1 x10(3)/[facility] 06/11/2025 7:53 PM EDT [facility] Blood VENOUS BLOOD / Unknown Venipuncture / Unknown 06/11/2025 7:48 PM EDT 06/11/2025 7:49 PM EDT Brenda Xiao APRN HEMATOLOGY ORDERABLES Gila l Result [facility] [address] [place] [address] * XR CHEST AP PORTABLE (06/11/2025 7:43 PM EDT) Anatomical Region Laterality Modality Chest Radiographic Negra ging 06/11/2025 7:43 PM EDT Impressions 06/11/2025 7:46 PM EDT No acute intrathoracic process. - Note: Radiology results need to be interpreted within a comprehensive clinical context. If you have questions about the radiology report, please contact the office of the ordering clinician. Narrative 06/11/2025 7:46 PM EDT XR CHEST AP PORTABLE, 06/11/2025 7:43 PM CLINICAL HISTORY: Acute chest pain. Congestion. COMPARISON: 04/10/2025. PROCEDURE COMMENTS: AP portable technique. FINDINGS: Stable radiographic appearance of the heart and pulmonary vascular structures. No evidence of acute pulmonary edema. The lungs are clear. No visualized pneumothorax or pleural effusions. Procedure Note Brenden Landry, - 06/11/2025 XR CHEST AP PORTABLE, 06/11/2025 7:43 PM CLINICAL HISTORY: Acute chest pain. Congestion. COMPARISON: 04/10/2025. PROCEDURE COMMENTS: AP portable technique. FINDINGS: Stable radiographic appearance of the heart and pulmonary vascularstructures. No evidence of acute pulmonary edema. The lungs are clear. No visualized pneumothorax or pleural effusions. IMPRESSION: No acute intrathoracic process. - Note: Radiology results need to be interpreted within a comprehensiveclinical context. If you have questions about the radiology report, please contactthe office of the ordering clinician. us Brenda Xiao APRN IMG DIAGNOSTIC IMAGING ORD ERABLES Final Result * EK EKG 12 LEAD (06/11/2025 7:29 PM EDT) Anatomical Region Laterality Modality Electrocardiogra phy 06/11/2025 7:36 PM EDT Impressions 06/12/2025 7:[address] [facility] Test Date: 2025-06-11 Pat Name: JUAN CARLOS MIGUEL Department: DEPID Room: 11 Gender: Male Fur Buyer: NICHOL : 1985 Requested By: MATTHEW SALDAÑA Order Number: [id number] Reading MD: Selina Delgadillo DO Measurements Intervals [place] Rate: 80 P: 36 VA: 154 QRS: 43 QRSD: 85 T: 30 QT: 353 QTc: 408 Interpretive Statements SINUS RHYTHM POSSIBLE RIGHT VENTRICULAR CONDUCTION DELAY MODERATE T-WAVE ABNORMALITY, CONSIDER ANTERIOR ISCHEMIA Electronically Signed On 06-12-2025 07:10:31 EST by Selina Delgadillo DO Narrative Procedure Note Selina Delgadillo DO - 06/12/[address] [facility] Test Date: 2025-06-11 Pat Name: JUAN CARLOS MIGUEL Department: DEPID Room: 11 Gender: Male Fur Buyer: NICHOL : 1985 Requested By: MATTHEW SALDAÑA Order Number: [id number] Reading MD: Selina Delgadillo DO Measurements Intervals [place] Rate: 80 P: 36 VA: 154 QRS: 43 QRSD: 85 T: 30 QT: 353 QTc: 408 Interpretive Statements SINUS RHYTHM POSSIBLE RIGHT VENTRICULAR CONDUCTION DELAY MODERATE T-WAVE ABNORMALITY, CONSIDER ANTERIOR ISCHEMIA Electronically Signed On 06-12-2025 07:10:31 EST by Selina Delgadillo DO Matthew Saldaña DO IMG ECG ORDERABLES Final Resu lt documented in this encounter Visit Diagnoses Diagnosis Bronchitis- Primary Bronchitis, not specified as acute or chronic documented in this encounter Administered Medications Inactive Administered Medications - up to 1 most recent administrations Medication Order MAR Action Action Date Dose Rate Site albuterol-ipratropium (DUO-NEB) 3 mg-0.5 mg(2.5 mg base)/3 mL nebulizer solution 3 mL 3 mL, Nebulization, ONCE, 1 dose, On 06/11/25 at 2000, Administered by Respiratory Therapy. Given 06/11/2025 7:52 PM EDT 3 mL predniSONE (DELTASONE) tablet 60 mg 60 mg, Oral, ONCE, 1 dose, On 06/11/25 at 1945 Given 06/11/2025 7:52 PM EDT 60 mg documented in this encounter Active and Recently Administered Medications Times are shown in EDT. Scheduled Medication Order 06/09/2025 06/10/2025 06/11/2025 albuterol-ipratropium (DUO-NEB) 3 mg-0.5 mg(2.5 mg base)/3 mL nebulizer solution 3 mL (COMPLETED) 3 mL, Nebulization, ONCE, 1 dose, On 06/11/25 at 2000, Administered by Respiratory Therapy. 1951 (Given - Provid er: Brandi Muhammad CRT) predniSONE (DELTASONE) tablet 60 mg (COMPLETED) 60 mg, Oral, ONCE, 1 dose, On 06/11/25 at 1945 1951 (Given - Provid er: Felicita Stearns RN) documented in this encounter Additional Health Concerns Assessment Noted Time PHQ-9 Depression Total Score: 10 024 2:21 PM EST PHQ-2 Depression Total Score: 2 06/16/20 24 2:21 PM EST documented as of this encounter Care Teams Configuration Management Specialist Relationship Specialty Start Date End Date Starla Olivares APRN [address] [place] [id number] PCP - General Nurse Practitioner 05/05/24 documented as of this encounter
--- OUTSIDE RECORDS SUMMARY | 2025-07-25 12:33 | XMS_ITS | Encounter Summary ---
Author Organization [place] [address] Care Team Providers Care Turbinated Bone Grinder Name Role Phone Starla Olivares APRN Primary Care Provider [phone] Reason for Referral * MRI/CAT Scan (Routine) - Closed Specialty Diagnoses / Procedures Referred By Jazielac t Referred To Contact Radiology Diagnoses New persistent daily headache Procedures MRI BRAIN W WO CONTRAST Starla Olivares APRN [address] [place] [address] Phone: tel: fax: Referral ID Status Reason Start Date Expiration Date Visits Re quested Visits Authorized [id number] Closed 06/21/2025 06/21/2026 1 1 Reason for Visit * MRI/CAT Scan (Routine) - Closed Specialty Diagnoses / Procedures Referred By Contsonam andrews Referred To Contact Radiology Diagnoses New persistent daily headache Procedures MRI BRAIN W WO CONTRAST Starla Olivares APRN [address] [place] [address] Phone: tel: fax: Referral ID Status Reason Start Date Expiration Date Visits Re quested Visits Authorized [id number] Closed 06/21/2025 06/21/2026 1 1 Encounter Details Date Type Department Care Team (Latest Contact Info) Description 07/25/2025 12:33 PM EST - 07/25/2025 11:59 PM EST Hospital Encounter [facility] MRI [address] [place] [address] Starla Olivares, COMMERCIAL ACCOUNT MANAGER [address] [place] [address] New persistent daily headache Discharge Disposition: Home or Self Care Social [...] from your doctor or pharmacy? Never 05/10/2024 [facility] Utilities Answer Date Recorded In the [...] week 05/10/2024 How often do you attend [facility] or anabaptist services? More than 4 times per year 05/10/2024 Do you belong to any clubs o r organizations such as uatsdin groups, unions, fraternal or athletic groups, or [...] Date Recorded PHQ-2 Total Score 2 06/16/2024 [facility] - Occupational Stress Questionnaire Answer Date Recorded [...] any time in the past 12 [facility], were you homeless or living in a senior care (including now)? No 05/10/2024 Sexually Active Control Partners Comments Yes Female Sex and Gender Information Value Date Recorded Sex Assigned at Not on file Legal Sex Male 7:29 AM EDT Gender Identity Not on file Sexual Orientation Not on file documented as of this encounter Functional Status * Is the [...] Malena Hancock RMA documented in this encounter Medications at Time [...] by mouth daily. 100 Tablet 1 02/23/2025 documented as of this encounter Discharge Disposition Disposition Code Departure Means Destination Home or Self Care documented in this encounter Plan of Treatment Upcoming Encounters Date Type Department Care Team (Late st Contact Info) Description 01/04/2026 2:00 PM EDT Office Visit [facility] [address] [facility] [address] [place] [id number] Serjio Rapp MD [address] [place] [address] documented as of this encounter Goals Goal [...] Procedure Name Priority Date/Time Associated Diagnosis Comments MRI BRAIN W WO CONTRAST Routine 07/25/2025 2:00 PM EST New persistent daily headache documented in this encounter Results * MRI BRAIN W WO CONTRAST (07/25/2025 2:00 PM EST) Anatomical Region Laterality Modality Head Magnetic Resonan ce 07/25/2025 2:00 PM EST Impressions 07/25/2025 2:22 PM EST No acute or enhancing abnormality. - Note: Radiology results need to be interpreted within a comprehensive clinical context. If you have questions about the radiology report, please contact the office of the ordering clinician. Narrative 07/25/2025 2:22 PM EST MRI BRAIN W WO CONTRAST 07/25/2025 2:00 PM CLINICAL HISTORY: G44.52-New daily persistent headache (ndph)-ICD-10-CM. COMPARISON: Noncontrast CT over July 07, 2015 PROCEDURE COMMENTS: Multiplanar multiecho MR imaging of the brain per protocol before and following IV contrast administration. Gadolinium contrast given as recorded in Epic. FINDINGS: Midline structures normally formed. Ventricles normal. No evidence of acute stroke, mass, or hemorrhage. Diffusion imaging normal. No abnormal enhancement. Major vascular flow voids preserved, suggesting patency. Small nonspecific subcortical gliosis at the left frontal lobe. This could be seen in the patient with the migraine. Mucosal disease at the ethmoid sinuses and left maxillary sinus consistent with the mild sinusitis. No air-fluid level. Procedure Note Danielle Rm MD - 07/25/2025 MRI BRAIN W WO CONTRAST 07/25/2025 2:00 PM CLINICAL HISTORY: G44.52-New daily persistent headache (ndph)-ICD-10-CM. COMPARISON: Noncontrast CT over July 07, 2015 PROCEDURE COMMENTS: Multiplanar multiecho MR imaging of the brain perprotocol before and following IV contrast administration. Gadolinium contrast givenas recorded in Epic. FINDINGS: Midline structures normally formed. Ventricles normal. No evidence ofacute stroke, mass, or hemorrhage. Diffusion imaging normal. No abnormal enhancement. Major vascular flow voids preserved, suggesting patency.Small nonspecific subcortical gliosis at the left frontal lobe. This could beseen in the patient with the migraine. Mucosal disease at the ethmoid sinuses and left maxillary sinus consistentwith the mild sinusitis. No air-fluid level. IMPRESSION: No acute or enhancing abnormality. - Note: Radiology results need to be interpreted within a comprehensiveclinical context. If you have questions about the radiology report, please contactthe office of the ordering clinician. Starla Olivares APRN [facility] MRI ORDERABLES Final Result documented in this encounter Visit Diagnoses Diagnosis New persistent daily headache New daily persistent headache documented in this encounter Administered Medications Inactive Administered Medications - up to 1 most recent administrations Medication Order MAR Action Action Date Dose Rate Site gadoterate meglumine (DOTAREM) solution 20 mL 20 mL, Intravenous, ONCE PRN, 1 dose, Starting on Fri07/25/25 at 1305, Until Fri07/25/25 at 1340, Radiology Procedure, VESICANT , MRI (Contrasts) Given 07/25/2025 1:40 PM EST 20 mL Left Arm sodium chloride 0.9% syringe Intravenous, ONCE PRN, 1 dose, Starting on Fri07/25/25 at 1305, Until Fri07/25/25 at 1340, Line Care, Flush peripheral lines every 12 hours, central lines every 8 hours, and after IV medication, MRI (Contrasts) Given 07/25/2025 1:40 PM EST Le ft Arm documented in this encounter Additional Health Concerns Assessment Noted Time PHQ-9 Depression Total Score: 10 024 2:21 PM EST PHQ-2 Depression Total Score: 2 06/16/20 24 2:21 PM EST documented as of this encounter Care Teams Turbinated Bone Grinder Relationship Specialty Start Date End Date Starla Olivares, COMMERCIAL ACCOUNT MANAGER [address] [place], [place] [address] PCP - General Nurse Practitioner 05/05/24 documented as of this encounter
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
--- OUTSIDE RECORDS SUMMARY | 2025-08-01 15:15 | XMS_ITS | Encounter Summary ---
Author Organization [place] [address] Care Team Providers Care Faculty Member Name Role Phone Starla Olivares APRN Primary Care Provider [phone] [phone] Encounter Details Date Type Department Care Team (Late st Contact Info) Description 08/01/2025 3:15 PM EST Telemedicine SEP Joe [address] [place] [address] Starla Olivares, CAREER TECHNOLOGY TEACHER [address] [place] [address] Major depressive disorder, recurrent severe without psychotic features (HCC) Social History Tobacco Use Types Packs/Day Years [...] from your doctor or pharmacy? Never 05/10/2024 [facility] Utilities Answer Date Recorded In the past 12 months has e electric, gas, oil, or water company [...] often do you attend chur ch or spiritism services? More than 4 times per year 05/10/2024 Do you belong to any clubs o r organizations such as taoism groups, unions, fraternal or athletic groups, or [...] Date Recorded PHQ-2 Total Score 2 06/16/2024 [facility] of Occupat ional Health - Occupational Stress [...] time in the past [address] [facility], were you homeless or living in a long term (including now)? No 05/10/2024 Sexually Active Control [...] No 05/10/2024 9:41 AM Malena Goode RMA * Is the person blind or does he/she have serious difficulty seeing even when wearing glasses? Answer Date of Assessment Author No 05/10/2024 9:41 AM Malena Goode RMA * Does this person have serious difficulty walking or climbing stairs? Answer Date of Assessment Author No 05/10/2024 9:41 AM Malena Goode RMA * Does this person have difficulty dressing or bathing? Answer Date of Assessment Author No 05/10/2024 9:41 AM Malena Goode RMA * Because of a physical, mental [...] Malena Goode RMA documented in this encounter Plan of Treatment Upcoming Encounters Date Type Department Care Team (Late st Contact Info) Description 01/04/2026 2:00 PM EDT Office Visit SEP Dermatology [facility] [address] [facility] [address] [place] [address] Serjio Rapp MD [address] [place] [address] documented as of this encounter Goals Goal [...] disorder, recurrent severe without psychotic features (HCC) Major depressive disorder, recurrent episode, severe, without mention of psychotic behavior documented in this encounter Additional Health Concerns Assessment Noted Time PHQ-9 Depression Total Score: 10 024 2:21 PM EST PHQ-2 Depression Total Score: 2 06/16/20 24 2:21 PM EST documented as of this encounter Care Teams Faculty Member Relationship Specialty Start Date End Date Starla Olivares [place] [address] [address] [place] [address] PCP - General Nurse Practitioner 05/05/24 documented as of this encounter
[2025-08-03 18:46] VITALS: BP 129/79; PULSE 72; RESP 19; TEMP 37.1; O2SAT 100; BMI 35.5
--- OUTSIDE RECORDS SUMMARY | 2025-08-03 18:48 | XMS_ITS | Clinical Summary ---
Author Organization [employer] [facility] are Address [address] [place] [address] Phone Care Team Providers Care Facilities Specialist Name Role Phone Unavailable Unavailable Conditions or Problems Problem Name Problem Code Onset Date Status Entry Date Provider Comment Standard Description Annotate DENTAL PAIN [id number] (SNOMED CT) Inactive Mily Peavie DDS Disorder of teeth AND/OR supporting structures surg EXT #30 Medications Medication Instructions Start Date Stop Date Generic Name [facility] Provider NORCO 5-325 MG ORAL TABLET TAKE ONE TABLET EVERY 4-6 HOURS NEEDED FOR PAIN HYDROCODONE -ACETAMINOP HEN [id number] Mily Abdullahi DDS Medications Administered No information available. Allergies, Adverse Reactions, Alerts Observed no known allergies at Results No information available. Plan of Care No information available. Procedures No information available. Vital Signs No information available. Immunizations No information available. Advance Directives No information available.
--- OUTSIDE RECORDS SUMMARY | 2025-08-03 18:49 | XMS_ITS | Encounter Summary ---
Author Organization [place] [address] Care Team Providers Care Lab Scientist Name Role Phone Starla Olivares APRN Primary Care Provider [phone] [phone] Reason for Visit * Reason Onset Date Comments Prior Authorization 07/27/2025 brexpiprazol e (REXULTI) 0.5 mg Oral Tablet Encounter Details Date Type Department Care Team ([facility] Contact Info) Description 07/27/2025 Telephone SEP Joe [address] [place] [id number] Starla Olivares, REVENUE CYCLE ADMINISTRATOR [address] [place] [address] Prior Authorization (brexpiprazole (REXULTI) 0.5 mg Oral Tablet) Social History Tobacco Use Types Packs/Day Years [...] from your doctor or pharmacy? Never 05/10/2024 [facility] Utilities Answer Date Recorded In the past [...] often do you attend chur ch or mormon services? More than 4 times per year 05/10/2024 Do you belong to any clubs o r organizations such as baptism groups, unions, fraternal or athletic groups, or [...] Date Recorded PHQ-2 Total Score 2 06/16/2024 [facility] of Occupat ional Health - Occupational [...] any time in the past 12 m [facility], were you homeless or living in a group home (including now)? No 05/10/2024 Sexually Active Control [...] of Assessment Author No 05/10/2024 9:41 AM BRIANNAT Malena Hancock RMA * Is the person blind or does he/she have serious difficulty seeing even when wearing glasses? Answer Date of Assessment Author No 05/10/2024 9:41 AM EDT Malena Hancock RMA * Does this person have serious difficulty walking or climbing stairs? Answer Date of Assessment Author No 05/10/2024 9:41 AM BRIANNAT Malena Hancock RMA * Does this person have difficulty dressing or bathing? Answer Date of Assessment Author No 05/10/2024 9:41 AM EDT Malena Hancock RMA * Because of a physical, mental or emotional condition, does this person have difficulty doing errands alone such as visiting a doctor's office or shopping? Answer Date of Assessment Author No 05/10/2024 9:41 AM BRIANNAT Malena Hancock RMA documented as of this encounter Mental Status * Because of a physical, mental or emotional condition, does this person have serious difficulty concentrating, remembering or making decisions? Answer Entry Date Author No 05/10/2024 9:41 AM EDT Malena Hancock RMA documented in this encounter Miscellaneous Notes * Telephone Encounter - Farzaneh Dean RMA - 07/27/2025 11:16 AM EST PA has been processed, cover my meds was having issues. * Telephone Encounter - Lilo Mora MA - 07/27/2025 9:18 AM EST Select the most appropriate reason for this telephone message: Prior Authorization Request Who is Calling: Patient Return Method of Communication: Phone Call What is the Prior Auth for: Medication Medication name/Dosage/ Frequency: Disp Refills Start End brexpiprazole (REXULTI) 0.5 mg Oral Tablet 42 Tablet 0 07/26/2025 08/23/2025 Sig - Route: Take 1 Tablet by mouth daily for 14 days, THEN 2 Tablets daily for 14 days. Indications: additional treatment for major depressive disorder - Oral Prior authorization: Payer Waiting for Response This order has not been released to its destination. Did the pharmacy suggest an alternate medication: No. Pharmacy Name & Location: [id number] [place] [address] - [address] [facility] - [phone] This order has not been released to its destination. [address] [facility] [address] ENRIQUE #: -- Is the patient???s insurance plan that is on file up to date: Yes Informed patient that prior authorizations can take up to 10 business days for response: yes Additional Information: It appear Rx was not released to destination due to needing a prior authorization. Please advise pt when PA has been initiated, thank you. documented in this encounter Plan of Treatment Upcoming Encounters Date Type Department Care Team (Late st Contact Info) Description 01/04/2026 2:00 PM EDT Office Visit SEP Dermatology [facility] [address] [facility] [address] [place] [address] Serjio Rapp MD [address] [place] [address] documented as of this encounter Goals Goal Patient Goal Type Associated Problems Recent Progress Patient-Stated? Author Blood Pressure < 140/90 Blood Pressure 125/73(2024 8:30 PM EDT) No Starla Olivares APRN Maintain a healthy diet, exercise regularly and maintain an ideal body weight General No Diamond Lester LPN Stay Tobacco Free Lifestyle No Diamond Lester LPN documented as of this encounter Visit Diagnoses Not on filedocumented in this encounter Additional Health Concerns Assessment Noted Time PHQ-9 Depression Total Score: 10 024 2:21 PM EST PHQ-2 Depression Total Score: 2 06/16/20 24 2:21 PM EST documented as of this encounter Care Teams Lab Scientist Relationship Specialty Start Date End Date Starla Olivares APRN [address] [place] [address] PCP - General Nurse Practitioner 05/05/24 documented as of this encounter
--- OUTSIDE RECORDS SUMMARY | 2025-08-03 18:49 | XMS_ITS | Encounter Summary ---
Author Organization [place] [place] [address] Care Team Providers Care Audio Video Tech Name Role Phone Starla Olivares APRN Primary Care Provider [phone] [phone] Reason for Visit * Reason Onset Date Comments Medication Refill 06/07/2025 Encounter Details Date Type Department Care Team (Late st Contact Info) Description 06/07/2025 Refill [facility] [address] [place] [address] [address] [place] [id number] Geovany AshleyREECE [address] [place] [address] Medication Refill Social History Tobacco Use Types Packs/Day Years [...] from your doctor or pharmacy? Never 05/10/2024 [facility] Utilities Answer Date Recorded In [...] 05/10/2024 How often do you attend chur or denominational services? More than 4 times per year [...] Date Recorded PHQ-2 Total Score 2 06/16/2024 [facility] Questionnaire Answer [...] any time in the past 12 m [facility], were you homeless or living in a detention (including now)? No 05/10/2024 Sexually Active Control [...] EDT Office Visit SEP Dermatology [facility] [address] [facility] [address] [place] [address] Serjio Rapp MD [address] [place] [address] documented as of this encounter Goals Goal Patient Goal Type Associated Problems Recent Progress Patient-Stated? Author Blood Pressure < 140/90 Blood Pressure 125/73(2024 8:30 PM EDT) No Starla Olivares APRN Maintain a healthy diet, exercise regularly and maintain an ideal body weight General No Diamond Lester LPN Stay Tobacco Free Lifestyle No Diamond Lester LPN documented as of this encounter Visit Diagnoses Diagnosis Acute bacterial bronchitis Acute bronchitis Exacerbation of asthma, unspecified asthma severity, unspecified whether persistent documented in this encounter Additional Health Concerns Assessment Noted Time PHQ-9 Depression Total Score: 10 024 2:21 PM EST PHQ-2 Depression Total Score: 2 06/16/20 24 2:21 PM EST documented as of this encounter Care Teams Audio Video Tech Relationship Specialty Start Date End Date Starla Olivares [place] [address] PCP - General Nurse Practitioner 05/05/24 documented as of this encounter
--- OUTSIDE RECORDS SUMMARY | 2025-08-03 18:49 | XMS_ITS | Encounter Summary ---
Author Organization [facility] [place] [address] Care Team Providers Care Shift Supervisor Rn Name Role Phone Starla Olivares APRN Primary Care Provider [phone] [phone] Encounter Details Date Type Department Care Team (Latest Contact Info) Description 07/26/2025 Travel Social History Tobacco Use Types Packs/Day Years [...] from your doctor or pharmacy? Never 05/10/2024 [facility] Utilities Answer Date Recorded In the [...] often do you attend chur ch or christian services? More than 4 times per year 05/10/2024 Do you belong to any clubs o r organizations such as faith groups, unions, fraternal or athletic groups, or [...] Total Score 2 06/16/2024 [facility] of Occupat ional Health - Occupational Stress [...] any time in the past 12 m [facility], were you homeless or living in a mcfp (including now)? No 05/10/2024 Sexually Active Control [...] Malena Hancock RMA documented in this encounter Plan of Treatment Upcoming Encounters Date Type Department Care Team (Late st Contact Info) Description 01/04/2026 2:00 PM EDT Office Visit [facility] [address] [address] Serjio Rapp MD [address] [place] [address] documented as of this encounter Goals Goal [...] documented as of this encounter Care Teams Shift Supervisor Rn Relationship Specialty Start Date End Date Starla Olivares APRN [address] [place] [id number] PCP - General Nurse Practitioner 05/05/24 documented as of this encounter
--- OUTSIDE RECORDS SUMMARY | 2025-08-03 18:49 | XMS_ITS | Encounter Summary ---
Author Organization [place] [address] Care Team Providers Care Geotechnical Intern Name Role Phone Starla Olivares APRN Primary Care Provider [phone] [phone] Encounter Details Date Type Department Care Team (Latest Contact Info) Description 04/21/2025 Results Follow-Up [facility] [address] [place] [address] Starla Olivares APRN [address] [place] [address] COMPREHENSIVE METABOLIC PANEL, CBC WITH DIFF Social History Tobacco Use Types Packs/Day Years [...] from your doctor or pharmacy? Never 05/10/2024 [facility] Utilities Answer Date Recorded In [...] often do you attend chur ch or voodoo services? More than 4 times per year 05/10/2024 Do you belong to any clubs o r organizations such as jewish groups, unions, fraternal or athletic groups, or [...] Date Recorded PHQ-2 Total Score 2 06/16/2024 [facility] of Occupat ional Health - Occupational Stress [...] any time in the past 12 m [place], were you homeless or living in a custodial (including now)? No 05/10/2024 Sexually Active Control [...] EDT Office Visit [facility] [address] [facility] [address] [place] [phone] Serjio Rapp MD [address] [place] [address] documented as of this encounter Goals Goal [...] documented as of this encounter Care Teams Geotechnical Intern Relationship Specialty Start Date End Date Starla Olivares APRN [address] [place] [address] PCP - General Nurse Practitioner 05/05/24 documented as of this encounter
--- OUTSIDE RECORDS SUMMARY | 2025-08-03 18:49 | XMS_ITS | Encounter Summary ---
Author Organization [place] [address] Care Team Providers Care Fulling Machine Operator Name Role Phone Starla Olivares APRN Primary Care Provider [phone] [phone] Reason for Visit * Reason Onset Date Comments Medication Refill 07/22/2025 Encounter Details Date Type Department Care Team (Late st Contact Info) Description 07/22/2025 Refill [facility] [place] [address] [address] [place] [id number] Geovany AshleyREECE [address] [place] [address] Medication Refill Social History Tobacco Use Types [...] from your doctor or pharmacy? Never 05/10/2024 [facility] Utilities Answer Date Recorded In the past [...] How often do you attend chur or cheondoism services? More than 4 times per year 05/10/2024 Do you belong to any clubs o r organizations such as buddhist groups, unions, fraternal or athletic groups, or [...] Date Recorded PHQ-2 Total Score 2 06/16/2024 [facility]ational Stress Questionnaire [...] any time in the past 12 m [facility], were you homeless or living in a prison (including now)? No 05/10/2024 Sexually Active Control [...] EDT Office Visit [facility] [address] [facility] [address] [place] [address] Serjio Rapp MD [address] [place] [address] documented as of this encounter Goals Goal [...] documented as of this encounter Care Teams Fulling Machine Operator Relationship Specialty Start Date End Date Starla Olivares [place] [address] PCP - General Nurse Practitioner 05/05/24 documented as of this encounter
--- OUTSIDE RECORDS SUMMARY | 2025-08-03 18:49 | XMS_ITS | Encounter Summary ---
Author Organization [place] [address] Care Team Providers Care Certified Addiction Counselor Name Role Phone Starla Olivares APRN Primary Care Provider [phone] [phone] Reason for Visit * Reason Onset Date Comments Medication Refill 07/22/2025 Encounter Details Date Type Department Care Team (Late st Contact Info) Description 07/22/2025 Refill [facility] [address] [place] [id number] Starla Olivares APRN [address] [place] [address] Medication Refill Social History Tobacco Use Types [...] from your doctor or pharmacy? Never 05/10/2024 [facility] Utilities Answer Date Recorded In [...] How often do you attend chur or uatsdin services? More than 4 times per year 05/10/2024 Do you belong to any clubs o r organizations such as jew groups, unions, fraternal or athletic groups, or [...] Date Recorded PHQ-2 Total Score 2 06/16/2024 [facility] - Occupational Stress Questionnaire [...] any time in the past 12 m [facility], were you homeless or living in a senior living (including now)? No 05/10/2024 Sexually Active Control [...] Malena Goode RMA documented in this encounter Miscellaneous Notes * Telephone Encounter - Ashanti Velasco MA - 07/22/2025 1:01 PM EST Basil:PDMP not electronically reviewed on this encounter. No Result Last fill:06/08/2025 Last visit: Upcoming appt: na documented in this encounter Plan of Treatment Upcoming Encounters Date Type Department Care Team (Late st Contact Info) Description 01/04/2026 2:00 PM EDT Office Visit [facility] D[facility] [address] [facility] [address] [place] [address] Serjio Rapp MD [address] [place] [address] documented as of this encounter Goals Goal Patient Goal Type Associated Problems Recent Progress Patient-Stated? Author Blood Pressure < 140/90 Blood Pressure 125/73(2024 8:30 PM EDT) No Starla Olivares APRN Maintain a healthy diet, exercise regularly and maintain an ideal body weight General No Diamond Lester LPN Stay Tobacco Free Lifestyle No Diamond Lester LPN documented as of this encounter Visit Diagnoses Diagnosis Chronic post-traumatic stress disorder (PTSD) documented in this encounter Discontinued Medications Medication Sig Discontinue Reason Start Date End Da te ibuprofen (ADVIL;MOTRIN) 200 mg Oral Tablet Take 200 mg by mouth every 8 hours as needed for Pain or Fever. Patient Reported not taking medication 07/22/2025 lumateperone 21 mg Oral CapsuleIndications:de pression associated with bipolar disorder Take 21 mg by mouth daily. Indications: bipolar depression Patient Reported not taking medication 04/14/2025 07/22/2025 methylPREDNISolone (MEDROL DOSPACK) 4 mg Oral Tablets, Dose PackIndications:Acute bacterial bronchitis,Exacerbati on of asthma, unspecified asthma severity, unspecified whether persistent See package instructions Patient Reported not taking medication 05/22/2025 07/22/2025 documented as of this encounter Additional Health Concerns Assessment Noted Time PHQ-9 Depression Total Score: 10 024 2:21 PM EST PHQ-2 Depression Total Score: 2 06/16/20 24 2:21 PM EST documented as of this encounter Care Teams Certified Addiction Counselor Relationship Specialty Start Date End Date Starla Olivares, MARKETING SYSTEMS MANAGER [address] [place] [address] PCP - General Nurse Practitioner 05/05/24 documented as of this encounter
--- OUTSIDE RECORDS SUMMARY | 2025-08-03 18:49 | XMS_ITS | Encounter Summary ---
Author Organization [place] [address] Care Team Providers Care Security Systems Technician Name Role Phone Starla Olivares APRN Primary Care Provider [phone] [phone] Reason for Visit * Reason Onset Date Comments 911/Red Flag 04/19/2025 Tremors x 1 week - FYI appt scheduled for tomorrow Encounter Details Date Type Department Care Team (Late Contact Info) Description 04/19/2025 Telephone [facility] [address] [place] [address] Starla Olivares, SEWER REPAIRER [address] [place], [place] [id number] 911/Red Flag (Tremors x 1 week- FYI appt scheduled for tomorrow) Social History Tobacco Use Types Packs/Day Years [...] from your doctor or pharmacy? Never 05/10/2024 [facility] Utilities Answer Date Recorded In [...] often do you attend chur ch or caodaism services? More than 4 times per year 05/10/2024 Do you belong to any clubs o r organizations such as sabianist groups, unions, fraternal or athletic groups, or [...] Date Recorded PHQ-2 Total Score 2 06/16/2024 [facility] of Occupat ional Health - Occupational [...] in the past [address] [facility], were you homeless or living in [...] encounter Miscellaneous Notes * Telephone Encounter - Migelleslie Shilpi - 04/19/2025 12:38 PM EDT Select the most appropriate reason for this telephone message: 911 Emergency Who is calling (be specific): Other mom-Sanaz Symptoms/Situation: Per mother, pt noticed tremors in his head as well as slight shaking in all other parts of body on & off. Stated his vision goes in & out regardless of if he's having tremors or not and he feels like he's going to pass out when this happens x 1 week, -No symptoms while scheduling his appt which is tomorrow, but advised to go to ER if they return between now and then. Mom vocalized understanding. Were emergency services dispatched: No If No, was the patient advised to call 911 or proceed to the nearest emergency department if they are experiencing a life threatening condition: Yes Return Method of Communication: Phone Call Was patient transferred to Nurse Triage for additional help? N/A Additional Information: FYI in case provider wants patient to do something else. Mother stated pt will only see PCP and declined to schedule with anyone else. documented in this encounter Plan of Treatment Upcoming Encounters Date Type Department Care Team (Late st Contact Info) Description 01/04/2026 2:00 PM EDT Office Visit [facility] D[facility] [address] [facility] [address] [place] [phone] Serjio Rapp MD [address] [place] [address] documented as of this encounter Goals Goal [...] documented as of this encounter Care Teams Security Systems Technician Relationship Specialty Start Date End Date Starla Olivares, SEWER REPAIRER [address] [place] [address] PCP - General Nurse Practitioner 05/05/24 documented as of this encounter
--- OUTSIDE RECORDS SUMMARY | 2025-08-03 18:49 | XMS_ITS | Encounter Summary ---
Author Organization [place] [address] Care Team Providers Care Kier Hand Name Role Phone Starla Olivares APRN Primary Care Provider [phone] [phone] Reason for Visit * Reason Onset Date Comments Medication Refill 06/07/2025 Encounter Details Date Type Department Care Team (Late st Contact Info) Description 06/07/2025 Refill [facility] [address] [place] [phone] Starla Olivares APRN [address] [place] [address] Medication Refill Social History Tobacco Use Types [...] doctor or pharmacy? Never 05/10/2024 [facility] Utilities Answer Date Recorded In the [...] How often do you attend chur or yazdanism services? More than 4 times per year 05/10/2024 Do you belong to any clubs o r organizations such as moravian groups, unions, fraternal or athletic groups, or [...] Date Recorded PHQ-2 Total Score 2 06/16/2024 [facility] - Occupational Stress Questionnaire Answer [...] any time in the past 12 m [facility], were you homeless or living in a alf (including now)? No 05/10/2024 Sexually Active Control [...] Refills Last Filled Start Date End Date ALPRAZolam (XANAX) 0.5 mg Oral TabletIndications: panic symptoms, tremors Take 1 Tablet by mouth 2 times daily as needed for Sleep or Anxiety. Indications: panic symptoms, tremors 7 Tablet 06/08/2025 documented in this encounter Miscellaneous Notes * Telephone Encounter - Ashanti Velasco MA - 06/07/2025 9:44 AM EDT Basil:PDMP not electronically reviewed on this encounter. No Result Last fill:02/03/2025 Last visit:04/20/2025 Upcoming appt: na documented in this encounter Plan of Treatment Upcoming Encounters Date Type Department Care Team (Late st Contact Info) Description 01/04/2026 2:00 PM EDT Office Visit [facility] D[facility] [address] [facility] [address] [place] [phone] Serjio Rapp MD [address] [place] [address] documented as of this encounter Goals Goal [...] Discontinue Reason Start Date End Da te ALPRAZolam (XANAX) 0.5 mg Oral TabletIndications:panic symptoms, tremors Take 1 Tablet by mouth 2 times daily as needed for Sleep or Anxiety. Indications: panic symptoms, tremors Reorder 02/03/2025 06/07/2025 documented as of this encounter Additional Health Concerns Assessment Noted Time PHQ-9 Depression Total Score: 10 024 2:21 PM EST PHQ-2 Depression Total Score: 2 06/16/20 24 2:21 PM EST documented as of this encounter Care Teams Kier Hand Relationship Specialty Start Date End Date Starla Olivares, PHILOSOPHY INSTRUCTOR [address] [place], [place] [address] PCP - General Nurse Practitioner 05/05/24 documented as of this encounter
--- OUTSIDE RECORDS SUMMARY | 2025-08-03 18:49 | XMS_ITS | Clinical Summary ---
Author Organization [facility] Address [address] [place] [address] Care Team Providers Care Retail Mortgage Banker Name Role Phone Unavailable Primary Care Provider Unavailabl e Source Comments [facility] is fully rolled out with thefollowing exceptions:General Clinical Research [facility] Social History Tobacco Use Types Packs/Day Years Used Date Smoking Tobacco: Never Assessed Sex and Gender Information Value Date Recorded Sex Assigned at Not on file Legal Sex Male 5:08 AM EST Gender Identity Not on file Sexual Orientation Not on file Plan of Treatment Health Maintenance Due Date Last Done Comments MMR IMMUNIZATION (1 of 1 - S tandard series) 1988 DTAP/Tdap/Td IMMUNIZATION (1 - Tdap) 1994 Yearly Physical Ages 3-18+ 1998 VARICELLA IMMUNIZATION (1 of 2 - 13+ 2-dose series) 2000 HEPATITIS B IMMUNIZATION (1 of 3 - 19+ 3-dose series) 2006 AMB SEASONAL FLU VACCINE (#1) 04/11/2025 COVID-19 Vaccine ( - 2024-2 6 season) 2025 HIB IMMUNIZATION Aged Out No longer e ligible based on patient's age to complete this topic HPV IMMUNIZATION (No Doses Required) Completed IPV IMMUNIZATION Aged Out No longer e ligible based on patient's age to complete this topic MCV4 IMMUNIZATION Aged Out No longer eligible based on patient's age to complete this topic MENINGOCOCCAL B VACCINE Aged Out No l onger eligible based on patient's age to complete this topic PNEUMOCOCCAL IMMUNIZATION Aged Out No longer eligible based on patient's age to complete this topic Respiratory Syncytial Virus (RSV) <20mo Aged Out No longer eligible b ased on patient's age to complete this topic
--- OUTSIDE RECORDS SUMMARY | 2025-08-03 18:50 | XMS_ITS | Clinical Summary ---
Author Organization [facility] Address [address] [place] [address] Phone Care Team Providers Care Ginseng Farmer Name Role Phone Starla Olivares APRN Primary Care Provider [phone] Allergies No known active allergies Medications * This document contains information received from the source organization and may not represent a complete record from that organization. cloNIDine (CATAPRES) 0.1 mg Oral TabletIndicatio ns:Generalized anxiety disorder Take 1 Tablet by mouth 2 times daily. 60 Tablet 2 08/30/19 25 Active albuterol-iprat ropium (DUO-NEB) 3 mg-0.5 mg(2.5 mg base)/3 mL Inhl Solution for NebulizationInd ications:Acute bacterial bronchitis,Exac erbation of asthma, unspecified asthma severity, unspecified whether persistent Take 3 mL by nebulization every 6 hours as needed for Shortness of Breath. 60 mL 05/22/20 25 Active ALPRAZolam (XANAX) 0.5 mg Oral TabletIndicatio ns:panic symptoms, tremors Take 1 Tablet by mouth 2 times daily as needed for Sleep or Anxiety. Indications: panic symptoms, tremors 7 Tablet 06/08/20 25 Active brexpiprazole (REXULTI) 0.5 mg Oral TabletIndicatio ns:major depressive disorder treatment adjunct Take 1 Tablet by mouth daily for 14 days, THEN 2 Tablets daily for 14 days. Indications: additional treatment for major depressive disorder 42 Tablet 07/26/20 25 026 Active escitalopram oxalate (LEXAPRO) 10 mg Oral TabletIndicatio ns:Major depressive disorder, recurrent severe without psychotic features (HCC),Generaliz ed anxiety disorder,Chroni c post-traumatic stress disorder (PTSD) Take 1 Tablet by mouth daily. 100 Tablet 1 08/02/20 25 Active ibuprofen (ADVIL;MOTRIN) 200 mg Oral Tablet Take 200 mg by mouth every 8 hours as needed for Pain or Fever. 025 Discontinue d(Patient Reported not taking medication) escitalopram oxalate (LEXAPRO) 10 mg Oral TabletIndicatio ns:Chronic post-traumatic stress disorder (PTSD),Major depressive disorder, recurrent severe without psychotic features (HCC) Take 1 Tablet by mouth daily. 100 Tablet 1 02/24/20 25 025 Discontinue d(Reorder) lumateperone 21 mg Oral CapsuleIndicati ons:depression associated with bipolar disorder Take 21 mg by mouth daily. Indications: bipolar depression 30 Capsule 04/14/20 25 025 Discontinue d(Patient Reported not taking medication) methylPREDNISol one (MEDROL DOSPACK) 4 mg Oral Tablets, Dose PackIndications :Acute bacterial bronchitis,Exac erbation of asthma, unspecified asthma severity, unspecified whether persistent See package instructions 21 Tablet 05/22/20 25 025 Discontinue d(Patient Reported not taking medication) Active Problems Patient Care Coordination No te Formatting of this note migh t be different from the original. gee as expected 01/29/2016 [facility]: [facility] [employer]PER Appt 12/20/22 Letter Sent HCC audit completed by Sravani Mathews RN on 05/21/2023. Problem Noted Date Diagnosed Date Borderline personality disorder in adult 025 Assessment & Plan (02/01/2025 10:06 PM EDT): After discussion of risks, benefits and possible side effects, will begin Lamictal as written. Continue lexapro and clonidine. Close interval f/u in 1 month, sooner as needed. Orders: lamoTRIgine (LAMICTAL) 25 mg Oral Tablet; Take 1 Tablet by mouth 2 times daily. [id number] rapid metabolizer 06/21/2024 Overview (06/21/2024): Patient has a genotype-predicted EBP2Y40 rapid metabolizer phenotype (*1/*17) . Medications impacted by the PSG6E87 Rapid Metabolizer phenotype are SSRI's (citalopram, escitalopram and sertraline), PPI's (omeprazole, lansoprazole, dexlansoprazole, pantoprazole) and voriconazole. See the Genomic Indicators tab in the Patient Snapshot or on the toolbar for more information. Assessment & Plan (07/13/2024 6:02 PM EST): reviewed results today with patient, used data to make clinical decisions Right carpal tunnel syndrome 06/08/2024 Overview (07/21/2024): R carpal tunnel release with Dr. Lilly on 07/01/2024 Assessment & Plan (07/21/2024 11:53 PM EST): R carpal tunnel release with Dr. Lilly on 07/01/2024. Presents today with sutures remaining. Tolerated #7 suture removal without difficulty. Keep site clean and dry. 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 is motivated to quit and is weaning to stop. is experiencing some sweating and nausea. states he is in an online group for support. Major depressive disorder, r ecurrent severe without psychotic features 07/14/2023 Assessment & Plan (04/14/2025 4:26 PM EDT): As above. Assessment & Plan (02/21/2025 4:17 PM EDT): Orders: AMB REFERRAL TO BEHAVIORAL HEALTH Assessment & Plan (07/21/2024 11:53 PM EST): Continue lexapro daily. Declines restarting counseling at this time. Denies thoughts of self harm. Reports that he feels it has been helpful with anxiety, depression and focus Assessment & Plan (07/13/2024 6:02 PM EST): After discussion of risks, benefits and possible side effects, will begin Lexapro as written. Orders: escitalopram oxalate (LEXAPRO) 10 mg Oral Tablet; Take 1 Tablet by mouth daily. Assessment & Plan (06/19/2024 12:49 AM EST): Goal: achieve mental health wellness where ADLs, family, social and work relationships are optimal Depression Screen Score: Addressed: - Current stressors contributing to sx explored and discussed Compliance: - compliant with medications Advice: - remain compliant with follow up and medications - advised to see counseling - advised to contact this office if increased depressive or anxiety symptoms develop - avoid alcohol and drug use Medication Management: - medication management decisions took place at today's visit (see orders) Assessment & Plan (05/17/2024 11:04 PM EDT): Reinforced importance and urgency to call and schedule with behavioral health. Understands to seek emergency care at [facility] for severe panic symptoms, thoughts of self harm/SI. Orders: PHARMACOGENOMIC PANEL; Future PHARMACOGENOMIC PANEL Chronic post-traumatic stress disorder (PTSD) Overview (05/05/2024): hx. 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 most recently has had several family members pass away, was present for his Dad's passing and has trauma from witnessing his slow respiratory failure. Assessment & Plan (07/13/2024 6:02 PM EST): Goal: achieve mental health wellness where ADLs, family, social and work relationships are optimal Depression Screen Score: Addressed: - Current stressors contributing to sx explored and discussed Compliance: - compliant with medications - did not meet goals outlined in previous treatment plan Advice: - remain compliant with follow up and medications - advised to see counseling - advised to seek help or contact this office emergently if any suicidal or homicidal thoughts develop - advised to contact this office if increased depressive or anxiety symptoms develop - avoid alcohol and drug use Medication Management: - medication management decisions took place at today's visit (see orders) - a reassessment of the patients current diagnoses, medications, labs, potential SE, appropriate dose and risks assessed and discussed today Orders: escitalopram oxalate (LEXAPRO) 10 mg Oral Tablet; Take 1 Tablet by mouth daily. ALPRAZolam (XANAX) 0.5 mg Oral Tablet; Take 1 Tablet by mouth 2 times daily as needed for Sleep or Anxiety. Indications: panic symptoms, tremors Assessment & Plan (06/19/2024 12:49 AM EST): After discussion of risks, benefits and possible side effects, will begin Lamictal as written. Orders: lamoTRIgine (LAMICTAL) 25 mg Oral Tablet; Take 1 Tablet by mouth daily. busPIRone (BUSPAR) 15 mg Oral Tablet; Take 1 Tablet by mouth 2 times daily. Assessment & Plan (05/17/2024 11:04 PM EDT): Goal: achieve mental health wellness where ADLs, family, social and work relationships are optimal Depression Screen Score: Addressed: - Current stressors contributing to sx explored and discussed Compliance: - compliant with medications - multiple medication trials without tolerance Advice: - advised to see counseling - advised to seek help or contact this office emergently if any suicidal or homicidal thoughts develop - advised to contact this office if increased depressive or anxiety symptoms develop - avoid alcohol and drug use Medication Management: - not currently taking medication d/t poor tolerance, pharmacogenomic panel as ordered today Reinforced importance and urgency to call and schedule with behavioral health. Understands to seek emergency care at [facility] for severe panic symptoms, thoughts of self harm/SI. Orders: PHARMACOGENOMIC PANEL; Future PHARMACOGENOMIC PANEL Assessment & Plan (05/16/2024 10:27 PM EDT): meds as written, continue counseling Assessment & Plan (05/05/2024 10:02 AM EDT): continue current medications, Yon has great insight into his trauma and is motivated to improve his life. referral for counseling placed. f/u with me in 1 month. Herpes genitalis in men 04/07/2019 Generalized anxiety disorder 06/05/2017 Assessment & Plan (02/21/2025 4:17 PM EDT): Orders: AMB REFERRAL TO BEHAVIORAL HEALTH Assessment & Plan (02/01/2025 10:06 PM EDT): Goal: achieve mental health wellness where ADLs, family, social and work relationships are optimal Depression Screen Score: Addressed: - Current stressors contributing to sx explored and discussed Compliance: - compliant with medications - did not meet goals outlined in previous treatment plan Advice: - remain compliant with follow up and medications - advised to see counseling - advised to seek help or contact this office emergently if any suicidal or homicidal thoughts develop - advised to contact this office if increased depressive or anxiety symptoms develop - avoid alcohol and drug use Medication Management: - a reassessment of the patients current diagnoses, medications, labs, potential SE, appropriate dose and risks assessed and discussed today - responding as expected Assessment & Plan (07/21/2024 11:53 PM EST): Continue lexapro daily and prn alprazolam. Declines restarting counseling at this time. Denies thoughts of self harm. Reports that he feels it has been helpful with anxiety, depression and focus. Assessment & Plan (06/19/2024 12:49 AM EST): Goal: achieve mental health wellness where ADLs, family, social and work relationships are optimal Depression Screen Score: Addressed: - Current stressors contributing to sx explored and discussed Compliance: - compliant with medications Advice: - remain compliant with follow up and medications - advised to contact this office if increased depressive or anxiety symptoms develop - avoid alcohol and drug use Medication Management: - medication management decisions took place at today's visit (see orders) Assessment & Plan (05/21/2024 12:57 PM EDT): Orders: cloNIDine (CATAPRES) 0.1 mg Oral Tablet; Take 1 Tablet by mouth 2 times daily. After discussion of risks, benefits and possible side effects, will begin clonidine as written. Discussed he will likely benefit from 0.2mg BID but will trial tolerance to this dose. Assessment & Plan (05/17/2024 11:04 PM EDT): Reinforced importance and urgency to call and schedule with behavioral health. Understands to seek emergency care at [facility] for severe panic symptoms, thoughts of self harm/SI. Orders: PHARMACOGENOMIC PANEL; Future PHARMACOGENOMIC PANEL Assessment & Plan (05/16/2024 10:27 PM EDT): Goal: achieve mental health wellness where ADLs, family, social and work relationships are optimal Depression Screen Score: Addressed: - Current stressors contributing to sx explored and discussed Compliance: - compliant with medications - will discontinue Prozac d/t reported SE, continue Rexulti Advice: - remain compliant with follow up and medications Medication Management: - medication management decisions took place at today's visit (see orders) Neck pain 11/06/2015 Resolved Problems Problem Noted Date Diagnosed Date Resolved Date Dental abscess 07/17/2023 04/25/2025 Obesity, Class II, BMI 35-39.9 10/26/2015 05/05/2024 Neck strain 10/26/2015 05/05/2024 Encounters Date Type Department Care Team Description 08/01/2025 3:15 PM EST Telemedicine [facility] [address] [place] [phone] Starla Olivares APRN Major depressive disorder, recurrent severe without psychotic features (HCC) 08/01/2025 Travel 07/27/2025 Telephone [facility] [address] [place] [phone] Starla Olivares APRN Prior Authorization (brexpiprazole (REXULTI) 0.5 mg Oral Tablet) 07/26/2025 4:30 PM EST Telemedicine [facility] [address] [place] [phone] Starla Olivares APRN Major depressive disorder, recurrent severe without psychotic features (HCC) (Primary Dx); Generalized anxiety disorder; Chronic post-traumatic stress disorder (PTSD) 07/26/2025 Travel 07/25/2025 12:33 PM EST - 07/25/2025 11:59 PM EST Hospital Encounter [facility] [address] [place] [address] Starla Olivares APRN New persistent daily headache Discharge Disposition: Home or Self Care 07/22/2025 Refill [facility] [place] [address] [place] [phone] Starla Olivares APRN Medication Refill 07/22/2025 Refill [facility] [address] [place] [address] Ashley Armenta ARNP Medication Refill 06/11/2025 7:28 PM EDT - 06/11/2025 8:53 PM EDT [facility] [address] [place] [address] Matthew Saldaña DO Bronchitis (Primary Dx) Discharge Disposition: Home or Self Care 06/07/2025 Refill [facility] [place] [address] [place] [phone] Starla Olivares APRN Medication Refill 06/07/2025 Refill [facility] Ur[facility] [place] [address] [facility] [address] [place] [address] Ashley Armenta ARNP Medication Refill 05/22/2025 4:15 PM EDT Office Visit [facility] [place] [address] [place] [address] Ashley Armenta ARNP Acute bacterial bronchitis (Primary Dx); Exacerbation of asthma, unspecified asthma severity, unspecified whether persistent from Last 3 Months Immunizations Immunization Administration Dates Next Due DTaP, Unspecified Formulation 04/06/1993 ,03/14/1989,12/25/1988,1987,1987 Hepatitis B, Unspecified Formulation 12/26/1990 MMR 04/06/1993,01/01/1989 Polio, Unspecified Formulation 3,03/14/1989,12/25/1988,1987,1987 Tdap 05/15/2017 Surgical History Surgery Date Site/Laterality Comments TOE AMPUTATION Left left great toe CHOLECYSTECTOMY, LAPAROSCOPIC 01/18/2016 N/A LAPAROSCOPIC CHOLECYSTECTOMY ; Surgeon: Everett Lion MD; Location: ED MAIN OR; Service: General CARPAL TUNNEL RELEASE 07/01/2024 Hand/Wrist/Right Right carpal tunnel release; Surgeon: Clay Lilly MD; [facility]; Service: Hand Medical History Medical History Date Comments Toe amputation status Partial Depression Anxiety Asthma As a child Obesity, Class II, BMI 35-39.9 10/26/2015 Hypertension Dental abscess 07/17/2023 Family History Medical History Relation Name Comments Alcohol Abuse Brother Alcohol Abuse Father Anesth Problems Neg Hx Relation Name Status Comments Brother Father Social History Tobacco Use Types Packs/Day Years Used Date Smoking Tobacco: Every Day Cigarettes Last attempted to quit: 10/02/2014 Passive Smoke Exposure: Current Smokeless Tobacco: Never Tobacco Cessation:Ready to Q uit: Not Asked; Counseling Given: Not Answered Comments:1 cig per month rarely Alcohol Use Standard Drinks/Week Comments No 0 (1 standard drink = 0.6 oz pur e alcohol) RARELY [id number] Health Literacy Answer Date Recor ded How often do you need to hav e someone help you when you read instructions, pamphlets, or other written material from your doctor or pharmacy? Never 05/10/2024 [employer] Answer Date Recorded In the past 12 months has th e [employer], gas, oil, or water company threatened to [...] How often do you attend chur or scientology services? More than 4 times per year 05/10/2024 Do you belong to any clubs o r organizations such as hoahaoism groups, unions, fraternal or athletic groups, or [...] Date Recorded PHQ-2 Total Score 2 06/16/2024 [facility] - Occupational Stress Questionnaire Answer Date [...] any time in the past 12 m [facility], were you homeless or living in a longterm (including now)? No 05/10/2024 Sexually Active Control Partners Comments Yes Female Sex and Gender Information Value Date Recorded Sex Assigned at Not on file Legal Sex Male 7:29 AM EDT Gender Identity Not on file Sexual Orientation Not on file Last Filed Vital Signs Vital Sign Reading [...] Mass Index 36.8 06/11/2025 7:24 PM EDT Plan of Treatment Upcoming Encounters Date Type Department Care Team (Late st Contact Info) Description 01/04/2026 2:00 PM EDT Office Visit [facility] [address] [facility] [facility] [address] [place] [id number] Serjio Rapp MD [address] [place] [address] Health Maintenance Due Date Last Done Comments Hepatitis B Vaccine (2 of 3 - 3-dose series) 01/23/1991 12/26/1990 Pneumococcal Vaccine 0-49 (1 of 2 - PCV) 2006 COVID-19 Vaccine ( season) 2025 Influenza Vaccine (#1) 2025 7 (Declined), 04/17/2016 (Declined), 10/26/2015 (Declined) Annual Wellness Exam 04/21/2025 04/21/2024, 10/26/19 16 DTaP/TDaP/Td (6 - Td or Tdap) 05/15/2027 05/15/2017, 04/06/1993, 03/14/1989, Additional history exists Meningococcal B Vaccine Aged Out No l onger eligible based on patient's age to complete this topic Goals Goal Patient Goal Type Associated Problems Recent Progress Patient-Stated? Author Blood Pressure < 140/90 Blood Pressure 125/73(2024 8:30 PM EDT) No Starla Olivares APRN Maintain a healthy diet, exercise regularly and maintain an ideal body weight General No Diamond Lester LPN Stay Tobacco Free Lifestyle No Diamond Lester LPN Procedures Procedure Name Priority Date/Time Associated Diagnosis Comments MRI BRAIN W WO CONTRAST Routine 07/25/2025 2:00 PM EST New persistent daily headache SCANNED EKG 06/13/2025 7:40 AM EST TROPONIN-T HIGH SENSITIVITY BASELINE W/ REFLEX STAT 06/11/2025 7:48 PM EDT COMPREHENSIVE METABOLIC PANEL STAT 06/11/2025 7:48 PM EDT CBC WITH DIFF STAT 06/11/2025 7:48 PM EDT XR CHEST AP PORTABLE JEANNIE 06/11/2025 7:43 PM EDT EK EKG 12 LEAD STAT 06/11/2025 7:29 PM EDT from Last 3 Months Results * MRI BRAIN W WO CONTRAST [...] of the ordering clinician. Starla Olivares APRN IMG MRI ORDERABLES Final Result * SCANNED EKG (06/13/2025 7:40 AM EST) Anatomical Region Laterality Modality Other 06/13/2025 7:40 AM EST us Unknown Provider IMG ECG ORDERABLES Final Result * TROPONIN-T HIGH SENSITIVITY BASELINE W/ REFLEX (06/11/2025 7:48 PM EDT) [facility] yg-rFttqzhox-X <6 <22 ng/L 06/11/2025 8:08 PM EDT [facility] Blood VENOUS BLOOD / Unknown Venipuncture / Unknown 06/11/2025 7:48 PM EDT 06/11/2025 7:49 PM EDT Narrative [facility] - 06/11/2025 8:08 PM EDT Ingestion of jong doses of biotin (>5 mg/day) taken within 8 hours of drawing blood sample can interfere with this immunoassay test. Brenda Xiao APRN CHEMISTRY ORDERABLES Final Result [facility] [address] [id number] * (ABNORMAL) CBC WITH DIFF (06/11/2025 7:48 PM EDT) [facility] WBC 5.7 3.7 - 10.3 x10(3)/mcL 06/11/2025 7:53 PM EDT [facility] RBC 4.73 4.60 - 6.10 x10(6)/mcL 06/11/2025 7:53 PM EDT [facility] Hgb 13.6(L) 13.7 - 17.5 g/dL 06/11/2025 7:53 PM EDT [facility] Hct 41.4 40.0 - 51.0 % 06/11/2025 7:53 PM EDT [facility] MCV 87.5 80.0 - 100.0 fL 06/11/2025 7:53 PM EDT [facility] MCH 28.8 26.0 - 34.0 pg 06/11/2025 7:53 PM EDT [facility] MCHC 32.9 30.7 - 35.5 g/dL 06/11/2025 7:53 PM [facility] RDW 13.3 <=14.9 % 06/11/2025 7:53 PM [facility] Platelet 226 155 - 369 x10(3)/[facility] 06/11/2025 7:53 PM [facility] MPV 8.8 8.8 - 12.5 fL 06/11/2025 7:53 PM [facility] Neut Percent 44.2 % 06/11/2025 7:53 PM [facility] Comment:Neutrophils equals s egs plus bands Imm Gran% 0.2 % 06/11/2025 7:53 PM [facility] Comment:Automated count of m etamyelocytes, myelocytes and promyelocytes. Lymph Percent 29.6 % 06/11/2025 7:53 PM [facility] [place] Percent 8.7 % 06/11/2025 7:53 PM [facility] Eos Percent 16.6 % 06/11/2025 7:53 PM [facility] Baso Percent 0.7 % 06/11/2025 7:53 PM [facility] Neut # 2.5 1.6 - 6.1 x10(3)/[facility] 06/11/2025 7:53 PM [facility] Comment:Neutrophils equals s egs plus bands IMMGRAN# 0.0 0.0 - 0.1 x10(3)/[facility] 06/11/2025 7:53 PM [facility] Comment:Automated count of m etamyelocytes, myelocytes and promyelocytes. An absolute IG <0.1 is reported as 0.0. Lymph # 1.7 1.2 - 3.9 x10(3)/mcL [facility]25 7:[facility] [place] # 0.5 0.3 - 0.9 x10(3)/[facility] 06/11/2025 7:53 PM [facility] Eos# 1.0(H) 0.0 - 0.5 x10(3)/[facility] 06/11/2025 7:53 PM [facility] Baso # 0.0 0.0 - 0.1 x10(3)/mcL 06/11/2025 7:53 PM EDT [facility] Blood VENOUS BLOOD / Unknown Venipuncture / Unknown 06/11/2025 7:48 PM EDT 06/11/2025 7:49 PM EDT us Brenda Bailey Dameon [employer] HEMATOLOGY ORDERABLES Gila l Result [facility] [address] [place] [address] * (ABNORMAL) COMPREHENSIVE METABOLIC PANEL (06/11/2025 7:48 PM EDT) Sodium 139 136 - 145 mmol/L 06/11/2025 8:08 PM EDT [facility] Potassium 4.1 3.5 - 5.0 mmol/L 06/11/2025 8:08 PM T [facility] Chloride 106 98 - 107 mmol/L 06/11/2025 8:08 PM T [facility] Total CO2 25 22 - 29 mmol/L 06/11/2025 8:08 PM T [facility] Anion Gap 8 7 - 16 mmol/L 06/11/2025 8:08 PM T [facility] Calcium 8.8 8.6 - 10.4 mg/dL 06/11/2025 8:08 PM T [facility] Glucose Lvl 112(H) 70 - 99 mg/dL 06/11/2025 8:08 PM EDT [facility] BUN 8 6 - 20 mg/dL 06/11/2025 8:08 PM T [facility] Creatinine 0.92 0.67 - 1.30 mg/dL 06/11/2025 8:08 PM EDT [facility] Albumin 3.9 3.5 - 5.2 gm/dL 06/11/2025 8:08 PM T [facility] Total Protein 6.8 6.4 - 8.3 gm/dL 06/11/2025 8:08 PM T [facility] Bili Total 0.3 0.2 - 1.4 mg/dL 06/11/2025 8:08 PM EDT [facility] ALT 19 <=41 U/L 06/11/2025 8:08 PM EDT [facility] AST 16 <=40 U/L 06/11/2025 8:08 PM EDT [facility] Alk Phos 83 40 - 129 U/L 06/11/2025 8:08 PM EDT [facility] eGFR (CKD-EPIcr 2020) 110 >=60 mL/min/1.7 3 m2 06/11/2025 8:08 PM EDT [facility] Comment:Estimated GFR was ca lculated using the CKD-EPIcr (2020) equation refit without race. The equation is recommended by the [employer] - [place] [employer] Task Force. Blood VENOUS BLOOD / Unknown Venipuncture / Unknown 06/11/2025 7:48 PM EDT 06/11/2025 7:49 PM EDT Brenda Xiao TEACHER BALLET CHEMISTRY ORDERABLES Final Result [facility] [address] [place] [address] * XR CHEST AP PORTABLE [...] please contactthe office of the ordering clinician. Brenda M Dameon TEACHER BALLET IMG DIAGNOSTIC IMAGING ORD ERABLES Final Result * EK EKG 12 LEAD (06/11/2025 7:29 PM EDT) Anatomical Region Laterality Modality Electrocardiogra phy 06/11/2025 7:36 PM EDT Impressions 06/12/2025 7:10 AM EST [facility] Test Date: 2025-06-11 Pat Name: JUAN CARLOS MIGUEL Department: DEPID Room: 11 Gender: Male Crotch Breaker: GL : 1985 Requested By: MATTHEW SALDAÑA Order Number: [id number] Reading MD: Selina Delgadillo DO Measurements Intervals [place] Rate: 80 P: 36 VA: 154 QRS: 43 QRSD: 85 T: 30 QT: 353 QTc: 408 Interpretive Statements SINUS RHYTHM POSSIBLE RIGHT VENTRICULAR CONDUCTION DELAY MODERATE T-WAVE ABNORMALITY, CONSIDER ANTERIOR ISCHEMIA Electronically Signed On 06-12-2025 07:10:31 EST by Selina Delgadillo DO Narrative Procedure Note Selina Delgadillo DO - 06/12/2025 IMPRESSION [facility] Test Date: 2025-06-11 Pat Name: JUAN CARLOS CATHERINEEN Department: DE[facility] Room: 11 Gender: Male Crotch Breaker: GL : 1985 Requested By: MATTHEW SALDAÑA Order Number: [id number] Reading MD: Selina Delgadillo DO Measurements Intervals [place] Rate: 80 P: 36 VA: 154 QRS: 43 QRSD: 85 T: 30 QT: 353 QTc: 408 Interpretive Statements SINUS RHYTHM POSSIBLE RIGHT VENTRICULAR CONDUCTION DELAY MODERATE T-WAVE ABNORMALITY, CONSIDER ANTERIOR ISCHEMIA Electronically Signed On 06-12-2025 07:10:31 EST by Selina Delgadillo DO Matthew Saldaña DO IMG ECG ORDERABLES Final Resu lt from Last 3 Months [place] [id number] [employer] [place] [address] [place] [id number] [place] [employer] [place] [address] [place] [id number] MDR Care Teams Ginseng Farmer Relationship Specialty Start Date End Date Starla Olivares [place] [place] [address] PCP - General Nurse Practitioner 05/05/24
--- OUTSIDE RECORDS SUMMARY | 2025-08-03 18:50 | XMS_ITS | Encounter Summary ---
Author Organization [facility] [place] [address] Care Team Providers Care Farmworker Rice Name Role Phone Starla Olivares APRN Primary Care Provider [phone] Encounter Details Date Type Department Care Team (Latest Contact Info) Description 08/01/2025 Travel Social History Tobacco Use Types Packs/Day [...] often do you attend chur ch or sabianism services? More than 4 times per year 05/10/2024 Do you belong to any clubs o r organizations such as adventist groups, unions, fraternal or athletic groups, or [...] Date Recorded PHQ-2 Total Score 2 06/16/2024 [facility] - Occupational Stress [...] [facility] the [facility], were you homeless or living in [...] 2:00 PM EDT Office Visit [facility] [address] [phone] Serjio Rapp MD [address] [place] [address] documented as of this encounter Goals Goal [...] documented as of this encounter Care Teams Farmworker Rice Relationship Specialty Start Date End Date Starla Olivares APRN [employer] [place] [id number] PCP - General Nurse Practitioner 05/05/24 documented as of this encounter
--- NOTE | 2025-08-03 18:57 | ED_ITS ---
Discharge Plan Disposition Patient Disposition: Home, Self-Care Condition: Good Prescriptions Prescriptions: New oseltamivir [Tamiflu] 75 mg capsule 75 mg PO BID 5 Days Qty: 10 0RF No Action sulfamethoxazole-trimethoprim 1 EACH tablet 1 each PO BID 10 Days Qty: 20 0RF azithromycin [Zithromax] 250 mg tablet 250 mg PO UD DOSE PK Qty: 6 0RF Rx Instructions: Take two (2) tablets today, then one (1) tablet days #2 thru #5 benzonatate [benzonatate] 100 mg capsule 100 mg PO TIDP PRN (Reason: Cough) Qty: 30 0RF ondansetron 4 mg Tablet,Disintegrating 4 mg PO Q8H PRN (Reason: Nausea) Qty: 8 0RF doxycycline hyclate 100 mg capsule 100 mg PO BID 10 Days Qty: 20 0RF prednisone 50 mg tablet 50 mg PO DAILY 5 Days Qty: 5 0RF loperamide 2 mg capsule 2 mg PO Q6H PRN (Reason: loose stool) 5 Days Qty: 20 0RF Rx Instructions: Please take 4 mg initially, followed by 2 mg after each loose stool, maximum 16 mg/day ondansetron 4 mg tablet,disintegrating 4 mg PO Q6H PRN (Reason: nausea and vomiting) 5 Days Qty: 20 0RF Referrals Follow up/Referrals: [facility] [Primary Care Provider, Medical] - See instructions Activity Restrictions/Add. Instructions Additional Instructions/Restrictions: Take the Tamiflu twice daily for the next 5 days. Use your inhaler 4 puffs every 4 hours while awake for the next 2 days. Return to the emergency department for any acute or worsening shortness of breath. Clinical Impressions Clinical Impression: Influenza A Instructions Patient Instructions: Cough Print Language Print Language: Armenian Discharge ED Provider: Lizzette Kim General Adult HPI General Chief complaint: Cough Stated complaint: cough fever bronchitis, wheezing Time Seen by Provider: 08/03/25 18:35 Mode of Arrival: Ambulatory Source of Information: Patient Description of Symptoms (Recalled from ER Triage Doc. by RN): pt presents to ED with mother and son for cough, fevers, weakness, vomitting. pt reports symptoms ongoing for the past day. mother and son are in the ER for similar symptoms and they live together, another family members was positive for flu A History of Present Illness HPI narrative: Patient is a 39-year-old male with a past medical history of asthma who presented to the emergency department with concern for cough fevers shortness of breath. Patient has a history of asthma, patient states that he has been using his nebulizer treatments at home but ran out of his medications. Patient states that his son recently tested positive for influenza A. Patient denies any chest pain. Patient denies any abdominal pain nausea vomiting or diarrhea. Patient denies any recent long travel. Patient denies any history of blood clots. Paco andersen denies any recent surgeries. States that he was on steroids 2 weeks ago but denies any other steroid use or other medication use. Patient does have a long history of psychiatric medical problems. Related Data Previous Rx's ?Medication ?Instructions ?Recorded sulfamethoxazole 800 1 each PO BID 10 days #20 ta bs 12/18/20 mg-trimethoprim 160 mg tablet azithromycin 250 mg tablet 250 mg PO UD DOSE PK #6 tab s 10/03/23 (Zithromax) benzonatate 100 mg capsule 100 mg PO TIDP PRN Cough #3 0 caps 10/03/23 ondansetron 4 mg disintegrating 4 mg PO Q8H PRN Nausea #8 tabs 10/03/23 tablet doxycycline hyclate 100 mg capsule 100 mg PO BID 10 da ys #20 caps 11/19/23 prednisone 50 mg tablet 50 mg PO DAILY 5 days #5 tab s 11/19/23 loperamide 2 mg capsule 2 mg PO Q6H PRN loose stool 5 days 12/06/23 #20 caps ondansetron 4 mg disintegrating 4 mg PO Q6H PRN nausea and 12/06/23 tablet vomiting 5 days #20 tabs oseltamivir 75 mg capsule (Tamiflu) 75 mg PO BID 5 day s #10 caps 08/03/25 Allergies Allergy/AdvReac Type Severity Reaction Status Date / Time No Known Allergies Allergy Verified 12/18/20 17:31 [facility] Disclaimer: The information contained in this section may have been updated after the patient was seen, as this information can be updated by other users. Social History (Updated 10/05/23 @ 11:10 by Derik Martinez APRN) Smoking Status: Current every day smoker alcohol intake: never current occupational status: other Travel in the last 8 weeks?: None Have you lived/traveled outside [place] in past 30 days?: No Contact w/someone who lives/traveled outside US past 30 days?: No Exposure to someone with infectious disease in past 14 days?: No Do you have a fever (greater than 100.4 F or 38 C)?: Yes Have you tested positive for COVID-19?: No Exposed to someone with COVID-19 in past 14 days?: No Do you have a sore throat?: Yes Do you have a cough?: Yes Do you have any weakness?: Yes Do you have any diarrhea?: No Are you experiencing any unusual bleeding?: No Do you have any muscle aches/pain?: No Do you have any abdominal pain?: No Are you experiencing loss of taste or smell?: No ROS Obtained: Yes All systems reviewed & no additional complaints except as documented and Yes Systems reviewed as appropriate & no additional complaints except as documented Physical Exam General General appearance: alert and in no apparent distress Head Head exam: atraumatic, normocephalic and normal inspection Eye Eye exam: Present normal appearance, PERRL and EOMI; Absent scleral icterus ENT ENT exam: Present normal exam and normal external ear exam Neck Neck exam: Present normal inspection and full ROM Chest Chest inspection: Present normal inspection and symmetric chest wall rise Respiratory Respiratory exam: Present normal lung sounds bilaterally and wheezes (bilateral, expiratory); Absent respiratory distress Cardiovascular Cardiovascular exam: Present regular rate, normal rhythm and normal heart sounds Abdominal Exam Abdominal exam: Present soft and distention; Absent tenderness, guarding or rebound Extremities Exam Extremities exam: Present normal inspection and full ROM Back Exam Back exam: Present normal inspection and full ROM Neurological Exam Neurological exam: Present alert and oriented X3 Psychiatric Psychiatric exam: Present normal affect and normal mood Skin Skin exam: Present warm and dry Medical Decision Making Medical Records Medical records reviewed: Yes I reviewed the patient's medical records. Screening: Per USPSTF and CDC recommendations, given the prevalence of disease in our region, it is our hospital?s policy to screen for HIV and viral Hepatitis for all patients aged 18 and over and those with ongoing risk factors. Basil Inquiry Pt receiving controlled substance: No Vital Signs: 08/03/25 18:46 08/03/25 22:06 Temperature 98.7 F 98.2 F Temperature Source Oral Oral Pulse Rate 81 Pulse Rate [Left Radial] 72 Respiratory Rate 19 16 Blood Pressure 116/78 Blood Pressure [Right Arm] 129/79 Blood Pressure Mean [Right Arm] 95 Blood Pressure Source Automatic Cuff Blood Pressure Position Sitting 02 Sat by Pulse Oximetry 100 Oxygen Delivery Method Room Air Room Air Lab Data Lab results reviewed: Yes I reviewed the patient's lab results. Orders (Tests/Meds): ED MEDICATIONS Discontinued Medications Generic Name Dose Route Start Last Admin Trade Name Britany PRN Reason Stop Dose Admin Albuterol Sulfate 2 puff 08/03/25 21:35 08/03/25 22:03 Albuterol-Hfa 90mcg/Puff Inhaler 8gm 08/03/25 21:36 2 puff ONCE ONE Administration Albuterol/Ipratropium 9 ml 08/03/25 19:03 08/03/25 19:45 Ipratropium/Albuterol 3 Ml Neb 08/03/25 19:04 9 ml ONCE ONE Administration Dexamethasone 10 mg 08/03/25 19:03 08/03/25 19:51 Dexamethasone 4mg Tablet PO 08/03/25 19:04 10 mg ONCE ONE Administration Miscellaneous 1 unit 08/03/25 21:34 08/03/25 22:03 Aerochamber/Optihaler MC 08/03/25 21:35 1 unit ONCE ONE Administration Oseltamivir Phosphate 75 mg 08/03/25 21:34 08/03/25 22:03 Oseltamivir 75mg Capsule PO 08/03/25 21:35 75 mg ONCE ONE Administration ORDERS Category Date Time Status CXR 2 view (NOT portable) [XR chest 2V] Stat Exams 08/03/25 19:03 Completed Medical Decision Narrative: Patient is a 39-year-old male with no significant past medical history who presents to the emergency department with concern for cough, upper respiratory symptoms as well as shortness of breath. On arrival, patient was hemodynamically stable with unremarkable vital signs. Differential includes but not limited to: Asthma exacerbation, viral syndrome, pneumothorax, pleural effusion, pulmonary embolism was considered however patient is PERC negative. Given patient's wheezing on exam, patient was given 3 DuoNebs and patient was given a dose of dexamethasone. Chest x-ray was obtained. Chest x-ray was reviewed and interpreted by myself and showed no acute for consolidation, pneumothorax, pleural effusion or other acute cardiopulmonary process. Respiratory swab was sent. Patient felt significantly improved after DuoNebs. Given that patient symptoms started today, he was interested in Tamiflu given that he tested positive for influenza A. Patient was given a dose here in the emergency department and sent home with a prescription. Patient was sent home with an MDI inhaler and return precautions were discussed and patient was otherwise discharged home in stable condition. Critical Care Critical Care Time Critical Care Time: No
--- NOTE | 2025-08-03 19:03 | XR_ITS ---
PROCEDURE INFORMATION: Exam: XR Chest Exam date and time: 08/03/2025 8:04 PM Age: 39 years old Clinical indication: Shortness of breath TECHNIQUE: Imaging protocol: Radiologic exam of the chest. Views: 2 views. COMPARISON: CR XR CHEST PORTABLE 05/14/2024 10:52 PM FINDINGS: Lungs: Unremarkable. No consolidation. Pleural spaces: Unremarkable. No pleural effusion. No pneumothorax. Heart/Mediastinum: Unremarkable. No cardiomegaly. Bones/joints: Unremarkable. Organs: Prior cholecystectomy noted. IMPRESSION: No acute findings.
[2025-08-03] MEDS: IPRATROPIUM/ALBUTEROL 3 ML NEB 9 ML IH (19:45)
[2025-08-03] MEDS: DEXAMETHASONE 4MG TABLET 10 MG PO (19:51)
[2025-08-03] MEDS: ALBUTEROL-HFA 90MCG/PUFF INHALER 8GM 2 PUFF IH (22:03)
[2025-08-03] MEDS: AEROCHAMBER/OPTIHALER 1 UNIT MC (22:03)
[2025-08-03] MEDS: OSELTAMIVIR 75MG CAPSULE 75 MG PO (22:03)
[2025-08-03 22:06] VITALS: BP 116/78; PULSE 81; RESP 16; TEMP 36.8; O2SAT 95
== END 2025-08-03 22:07 | disposition home or self-care (01) ==
PROVIDERS: Emergency Provider Student in an Organized Health Care Education/Training Program; PCP Family Medicine
DX: J10.1 Influenza due to other identified influenza virus with other respiratory manifestations (principal); R06.2 Wheezing; Z87.891 Personal history of nicotine dependence
CPT/HCPCS: 71046; 99283; J8540